=== PATIENT | female | born 1980 | race Caucasian/White ===

== ENCOUNTER → 2016-07-19 | Outpatient (CLI) | payer OTHER ==
[~2016-07-19] MED LIST: LEVO125T4 PO; PRENTAB26 PO
[2016-07-19 17:19] LABS: THYROID STIMULATING HORMONE 1.8 uIu/ml (0.300-4.500)
== END | disposition home or self-care (01) ==
LOC: C.LAB1850 15:46
PROVIDERS: ATTEND Internal Medicine Endocrinology, Diabetes & Metabolism
DX: E03.9 Hypothyroidism, unspecified (principal)

== ENCOUNTER → 2016-11-16 | Outpatient (CLI) | payer OTHER ==
[~2016-11-16] MED LIST changes: -LEVO125T4 PO; +LEVO125T5 PO
[2016-11-16 16:22] LABS: THYROID STIMULATING HORMONE 1.6 uIu/ml (0.300-4.500)
== END ==
LOC: C.LAB1850 14:42
PROVIDERS: ATTEND Internal Medicine Endocrinology, Diabetes & Metabolism
DX: E03.9 Hypothyroidism, unspecified (principal)

== ENCOUNTER → 2017-02-04 | Outpatient (CLI) | payer OTHER ==
[~2017-02-04] MED LIST changes: +LEVO125T4 PO; -LEVO125T5 PO
[2017-02-04 17:24] LABS: THYROID STIMULATING HORMONE 2.05 uIu/ml (0.300-4.500)
== END | disposition home or self-care (01) ==
LOC: C.LAB1850 15:32
PROVIDERS: ATTEND Internal Medicine Endocrinology, Diabetes & Metabolism
DX: E03.9 Hypothyroidism, unspecified (principal)

== ENCOUNTER 2017-03-10 03:38 | Emergency (ER) | payer OTHER ==
[~2017-03-10] VITALS: Ht 162.6 cm; Wt 60.3 kg
[2017-03-10 03:44] VITALS: TEMP 36.7; Ht 162.6 cm; Wt 60.3 kg
[2017-03-10] MEDS ORDERED: PROPARACAINE HCL 0.5% OP SOLN 15 ML BTL OP STA (03:53)
[2017-03-10] MEDS ORDERED: CIPROFLOXACIN HCL 0.3% OP SOLN 2.5 ML BTL OP STA (04:17)
--- NOTE | 2017-03-10 04:17 | EMERGENCY ROOM VISIT NOTE ---
ED Visit Note First contact with patient: 03:53 CHIEF COMPLAINT: Eye pain HISTORY OF PRESENT ILLNESS: This 36 patient presents to the emergency department with family complaining of pain in the left eye after her daughter accidently poked her in the eye . There has been a constant moderate pain and irritation, redness and tearing in the eye. There is a mild blurring of vision at times and light bothers the eye. The vision has been decreased over all. The patient does not wear contacts. The patient rates the pain as irritating and 7/10. The patient has not had previous injuries to this eye. Tetanus shot is up to date. REVIEW OF SYSTEMS: A 6 system review of systems was completed with positives and pertinent negatives listed in the HPI. ALLERGIES: Penicillin MEDICATIONS:none PMH: Medical Problems: (1) Bronchitis Status: Resolved (2) Ovarian cyst Status: Resolved (3) Pneumonia Status: Resolved (4) Status: Chronic SOCIAL HISTORY: no drug use PHYSICAL EXAM: Vital Signs: Reviewed Nurse's notes, vital signs stable. Visual acuity reviewed from nursing. GENERAL: This is a pleasant female, in no acute distress, but who is uncomfortable from the eye problem. Well-developed well- nourished. EYES: The pupils are equal round and reactive to light and accommodation. EOMs are full and without tenderness. There is discharge of clear tears from the left eye which is injected. There is no foreign body visible under the eyelid even after lid eversion. Funduscopic exam reveals no hemorrhages, papilledema, or other abnormalities. No foreign body was seen embedded in the cornea under slit lamp exam. The cornea was clear and no hyphema was seen. Fluorescein uptake was observed with ultraviolet light significant for a corneal abrasion at 5:00 that is 4 mm in diameter. Negative Radha sign. EMERGENCY DEPARTMENT COURSE: I examined the patient. Alcaine 2 drops were placed in the patient's left eye. A slit lamp exam was performed as above. Ciloxan two drops was placed in the patient's left eye. Patient was informed she had an extensive corneal abrasion. She had a negative Radha sign. She was strongly encouraged to see ophthalmology tomorrow morning for further evaluation and workup for her injury. She is advised to return to the ER me for severe pain, visual problems, worsening signs or symptoms or as needed. The patient was discharged home in good condition. DIAGNOSIS: Corneal abrasion of the left eye DISCHARGE INSTRUCTIONS AND TREATMENT: Use Ciloxin two drops in left eye every two hours while awake for two days; then two drops every four hours while awake for [address], drink alcohol, operate machinery, or perform dangerous activities today. You were given medications in the ER that can affect your ability to safely function or operate a vehicle. Oxycodone (OxyIR) 5mg: Take 1-2 pills every four hours for breakthrough pain. Avoid alcohol, operating machinery or dangerous equipment, working on ladders or roofs, DRIVING, or situations where being under the influence may be dangerous. It is recommended to use an goau-haz-kiwyifj stool softener such as Colace, 100mg twice daily while taking this medication to avoid constipation. Ibuprofen(Motrin, Advil) may be used for fever or pain. Use 600mg every six hours as needed. Take with food. Avoid using more than 2400mg in a 24 hour period. Do not use 2400mg per day for more than three consecutive days without physician direction. Prolonged inappropriate use can lead to stomach upset or ulcers. This medication can be taken if you need to drive, work, or perform activities which may be dangerous when taking narcotic pain medication. (AND/OR) Acetaminophen(Tylenol) may be used for fever or pain. Use 1000mg every six hours as needed. Avoid using more than 3000mg in a 24 hour period. This medication can be taken if you need to drive, work, or perform activities which may be dangerous when taking narcotic pain medication. Return to the ED or see your eye doctor in 24-48 hours for a recheck. Return to the ED for increasing pain or changes in vision. Problem List Medical Problems: (1) Bronchitis Status: Resolved (2) Ovarian cyst Status: Resolved (3) Pneumonia Status: Resolved (4) Status: Chronic Current/Historical Medications Scheduled Levothyroxine Sodium (Levothyroxine Sodium), 1 TAB PO DAILY Multivit/Min/Iron/Fol Ac/Pren ( Vitamin), 1 TAB PO DAILY Allergies Coded Allergies: Penicillins (Unverified Allergy, Unknown, UNSURE OF REACTION, 09/28/15) Vital Signs Date Time Temp Pulse Resp B/P (MAP) Pulse Ox O2 Delivery O2 Flow Rate FiO2 03/10/17 03:44 36.7 79 18 124/85 96 Room Air Departure Information Referrals Raleigh Santos M.D.(DYANA) (PCP) Patient Instructions [facility]
[2017-03-10] MEDS ORDERED: OXYCODONE IR HOME PACK PO ONE (04:30)
[2017-03-10 04:34] VITALS: BP 119/74; PULSE 86; O2SAT 96
== END 2017-03-10 04:35 | disposition home or self-care (01) ==
LOC: C.EDB 03:39
DX: S05.02XA Injury of conjunctiva and corneal abrasion without foreign body, left eye, initial encounter (principal); W50.0XXA Accidental hit or strike by another person, initial encounter

== ENCOUNTER → 2017-08-26 | Outpatient (CLI) | payer OTHER ==
[~2017-08-26] MED LIST changes: -LEVO125T4 PO; +LEVO125T5 PO
== END | disposition home or self-care (01) ==
LOC: C.LAB1850 12:27
PROVIDERS: ATTEND Internal Medicine Endocrinology, Diabetes & Metabolism
DX: E03.9 Hypothyroidism, unspecified (principal)

== ENCOUNTER 2020-04-16 16:08 | Observation (INO) ==
[2020-04-16] MEDS ORDERED: SODIUM CHLORIDE 0.9% 1000ML 1,000 ML IV ONE (16:15)
--- NOTE | 2020-04-16 16:28 | Emergency Department Note ---
Impression & Plan Abdominal pain, epigastric, Gallbladder anomaly, Acute hypokalemia ED Provider Note NAME: TREVOR ROBISON AGE: 39 SEX: F : 1980 ARRIVES VIA: Walk-In INFORMANT: Patient ED PROVIDER(S): Aydin Syed DO CHIEF COMPLAINT: Epigastric abdominal pain HPI: Patient is a 39-year-old female who presents ER for epigastric abdominal pain and fullness. Symptoms started this past Saturday. She notes over the past 48 hours feels as though there is a ball in there which has increased in size. Is worse after eating and drinking. She notes it is worse when she takes a deep breath. She denies any chest pain. The pain hurts when she takes deep breath in her epigastric region. No vomiting. Denies any dysuria, urgency or frequency. Last menstrual period was around the ninth and appropriate timing. Denies any cough or runny nose. No loss of taste or smell. No other exacerbating or remitting factors other than its worse with eating and drinking and twisting turning bending. She was previously on a PPI which she had stopped for some time and her PCP started this back up. PCP has her scheduled for endoscopy next week. ROS: See above HPI for pertinent positives & negatives. A total of 10 systems reviewed and were otherwise negative. PAST MEDICAL HISTORY:See Below PAST SURGICAL HISTORY:See Below FAMILY HISTORY:See Below SOCIAL HISTORY:See Below HOME MEDICATIONS:See Below ALLERGIES:See Below VITALS:See Below PHYSICAL EXAMINATION: GENERAL: Sitting up in bed, alert, well appearing, well nourished, no distress, non-toxic EYE EXAM: normal conjunctiva. OROPHARYNX: no exudate, no erythema, lips, buccal mucosa, and tongue normal and mucous membranes are moist NECK: supple, no nuchal rigidity, no adenopathy, non-tender LUNGS: Clear to auscultation. Normal chest wall mechanics HEART: no murmurs, S1 normal and S2 normal ABDOMEN: tender in the epigastric/RUQ region, non-tender, normo-active bowel sounds, no masses, no rebound or guarding. BACK: Back is symmetrical on inspection and there is no deformity, no midline tenderness, no CVA tenderness. SKIN: no rashes and no bruising UPPER EXTREMITIES: upper extremities are grossly normal. LOWER EXTREMITIES: No pitting edema. NEURO EXAM: Normal sensorium, cranial nerves II-XII grossly intact, normal speech, no gross weakness of arms, no gross weakness of legs. MEDICAL DECISION MAKING: Patient is a 39-year-old female who presents ER for epigastric abdominal pain. On exam she does have reproducible tenderness. IV was established blood work was obtained. Labs show no significant leukocytosis or anemia. D-dimer was negative with a pleuritic pain. BMP was remarkable for mild hypokalemia. LFTs bilirubin lipase was unremarkable. TSH slightly low 0.16. UA was negative. was negative. Ultrasound was unremarkable. CT abdomen pelvis shows stranding around the gallbladder. Discussed with Dr. Noel Flower who favors that this would be extremely unlikely to be a calculus cholecystitis with her age. Was agreeable with observation to the hospitalist service and possible HIDA scan and he will evaluate her. She did declined pain medications while she was in the ER. She was given IV fluids and a GI cocktail. Triage Nursing notes reviewed. Prior medical records reviewed Vital Signs: reviewed and remarkable for no significant abnormalities Differential diagnosis: Differential diagnoses includes but is not limited to gastritis, peptic ulcer disease, GERD, gallbladder disease, pancreatitis, small bowel obstruction, acute coronary syndrome, pericarditis, ischemic bowel, irritable bowel disease, irritable bowel syndrome, appendicitis, diverticulitis, malignancy, hernia, urinary tract infection, torsion, perforation, trauma, infectious. ER treatment provided: See below Diagnostics interpreted by me: ECG: Sinus rhythm rate 88 Normal axis No PVCs T WI in the septal leads QTC 440 Cardiac Monitoring: An order was placed for continuous cardiac monitoring. The monitor shows a rate of 83 with sinus rhythm. Laboratory studies: As stated above and show below. Imaging studies: Ultrasound of the gallbladder was unremarkable Portable AP upright 1 view of the chest was unremarkable CT abdomen pelvis shows inflammation around the gallbladder Consultation(s): Discussed with Dr. Noel Flower from general surgery as stated above in MDM Discussed with Dr. 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 ); Hx Alcohol Use: No Hx Substance Use: No Preferred Language: [place] All Round Logger Required: No Beliefs That Will Affect Care: None marital status: marital status details: Mariusz Robison (42) [phone] Current Living Situation: Spouse and Family Current Living Situation Comment: LIVES WITH SPOUSE AND DAUGHTER current occupational status: employed 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 Assistive Devices: Glasses Allergies Allergies Allergy/AdvReac Type Severity Reaction Status Date / Time Penicillins Allergy Unknown UNSURE OF Verified 02/26/20 09:35 REACTION Home Meds Home Medications Medication Instructions Recorded Confirmed calcium carbonate [Tums] 0 mg PO BID PRN 04/16/20 04/16/20 montelukast 10 mg PO DAILY PRN 04/16/20 04/16/20 [id number] 124 1 tab PO TID 04/16/20 04/16/20 [Airborne (ascorbic acid)] Previous Rx's Medication Instructions Recorded levothyroxine 125 mcg tablet 125 mcg PO DAILY #30 tab 01/25/20 Results & Data (ED) Vital Signs Vital Signs - 24 hr 04/16/20 16:11 04/16/20 16:22 04/16/20 19:23 Temperature 36.8 C Temperature Source Oral Pulse Rate 100 H Pulse Rate [Apical] 89 Respiratory Rate 20 18 Respiratory Effort / Characteristics Non-Labored Respiratory Depth Normal Blood Pressure 136/85 Blood Pressure [Right Arm] 119/88 Blood Pressure Mean 102 Blood Pressure Mean [Right Arm] 98 Pulse Oximetry 96 97 98 Oxygen Delivery Method Room Air Room Air Room Air Sepsis Recent Fever Within 48 Hours No Sepsis New/Unexplained Change in Mental Status N/A Sepsis Action Taken by Nursing No Action Required Laboratory Data Result diagrams: 04/16/20 16:45 04/16/20 16:45 Lab Results 04/16/20 04/16/20 04/16/20 Range/Units 16:45 16:45 16:45 WBC 9.54 (4.8-10.8) K/uL RBC 4.55 (4.2-5.4) M/uL Hgb 13.7 (12.0-16.0) g/dL Hct 40.2 (37-47) % MCV 88.4 (80-100) fL MCH 30.1 (25-34) pg MCHC 34.1 (32-36) g/dL RDW Std Deviation 38.3 (36.4-46.3) fL RDW Coeff of Juliana 11.9 (11.5-14.5) % Plt Count 180 (130-400) K/uL MPV 11.4 H (7.4-10.4) fL Immature Gran % (Auto) 0.2 % Neut % (Auto) 70.0 % Lymph % (Auto) 19.2 % [place] % (Auto) 9.5 % Eos % (Auto) 1.0 % Baso % (Auto) 0.1 % Neut # (Auto) 6.67 H (1.4-6.5) K/uL Lymph # (Auto) 1.83 (1.2-3.4) K/uL [place] # (Auto) 0.91 H (0.11-0.59) K/uL Eos # (Auto) 0.10 (0-0.5) K/uL Baso # (Auto) 0.01 (0-0.2) K/uL Immature Gran # (Auto) 0.02 (0.00-0.02) K/uL D-Dimer 280 (0-500) ug/L FEU Sodium 140 (136-145) mmol/L Potassium 3.4 L (3.5-5.1) mmol/L Chloride 106 (98-107) mmol/L Carbon Dioxide 31 (21-32) mmol/L Anion Gap 3.0 (3-11) BUN 11 (7-18) mg/dl Creatinine 0.87 (0.6-1.2) mg/dl Est Cr Clr Drug Dosing Not Reportable Est GFR ( Amer) 98.6 Est GFR (Non-Af Amer) 85.1 BUN/Creatinine Ratio 13.0 (10-20) Glucose 95 (70-99) mg/dl Calcium 8.7 (8.5-10.1) mg/dl Magnesium 2.0 (1.8-2.4) mg/dl Total Bilirubin 0.3 (0.2-1) mg/dl AST 50 H (15-37) U/L ALT 70 (12-78) U/L Alkaline Phosphatase 96 (45-117) U/L Total Protein 6.9 (6.4-8.2) gm/dl Albumin 3.7 (3.4-5.0) gm/dl Globulin 3.2 (2.5-4.0) gm/dl Albumin/Globulin Ratio 1.2 (0.9-2) Lipase 127 (73-393) U/L TSH 0.164 L (0.300-4.500) uIu/ml Urine Color Urine Appearance (Clear) Urine pH (4.5-7.5) Ur Specific [place] (1.000-1.030) Urine Protein (Negative) Urine Glucose (UA) (Negative) Urine Ketones (Negative) Urine Blood (Negative) Urine Nitrite (Negative) Urine Bilirubin (Negative) Urine Urobilinogen (Negative) Ur Leukocyte Esterase (Negative) Urine Test (Negative) 04/16/20 04/16/20 Range/Units 16:45 Unknown WBC (4.8-10.8) K/uL RBC (4.2-5.4) M/uL Hgb (12.0-16.0) g/dL Hct (37-47) % MCV (80-100) fL MCH (25-34) pg MCHC (32-36) g/dL RDW Std Deviation (36.4-46.3) fL RDW Coeff of Juliana (11.5-14.5) % Plt Count (130-400) K/uL MPV (7.4-10.4) fL Immature Gran % (Auto) % Neut % (Auto) % Lymph % (Auto) % [place] % (Auto) % Eos % (Auto) % Baso % (Auto) % Neut # (Auto) (1.4-6.5) K/uL Lymph # (Auto) (1.2-3.4) K/uL [place] # (Auto) (0.11-0.59) K/uL Eos # (Auto) (0-0.5) K/uL Baso # (Auto) (0-0.2) K/uL Immature Gran # (Auto) (0.00-0.02) K/uL D-Dimer (0-500) ug/L FEU Sodium (136-145) mmol/L Potassium (3.5-5.1) mmol/L Chloride (98-107) mmol/L Carbon Dioxide (21-32) mmol/L Anion Gap (3-11) BUN (7-18) mg/dl Creatinine (0.6-1.2) mg/dl Est Cr Clr Drug Dosing Est GFR ( Amer) Est GFR (Non-Af Amer) BUN/Creatinine Ratio (10-20) Glucose (70-99) mg/dl Calcium (8.5-10.1) mg/dl Magnesium (1.8-2.4) mg/dl Total Bilirubin (0.2-1) mg/dl AST (15-37) U/L ALT (12-78) U/L Alkaline Phosphatase (45-117) U/L Total Protein (6.4-8.2) gm/dl Albumin (3.4-5.0) gm/dl Globulin (2.5-4.0) gm/dl Albumin/Globulin Ratio (0.9-2) Lipase (73-393) U/L TSH (0.300-4.500) uIu/ml Urine Color Yellow Urine Appearance Clear (Clear) Urine pH 8.5 H (4.5-7.5) Ur Specific [place] 1.017 (1.000-1.030) Urine Protein Negative (Negative) Urine Glucose (UA) Negative (Negative) Urine Ketones Negative (Negative) Urine Blood Negative (Negative) Urine Nitrite Negative (Negative) Urine Bilirubin Negative (Negative) Urine Urobilinogen Negative (Negative) Ur Leukocyte Esterase Negative (Negative) Urine Test Negative (Negative) Administered Medications Discontinued Medications Sodium Chloride (Nss 1000ml) 1,000 mls @ 999 mls/hr IV .Q1H1M ONE Stop: 04/16/20 17:15 Last Infusion: 04/16/20 17:55 Dose: 0 mls/hr Documented by: [id number] Admin: 04/16/20 16:54 Dose: 999 mls/hr Documented by: [id number] Ioversol (Ioversol 100ml) 93 ml IV ONCE ONE Stop: 04/16/20 18:36 Last Admin: 04/16/20 18:36 Dose: 93 ml Documented by: [id number] Discharge Plan Visit Data Chief Complaint: Abdominal Pain Stated Complaint: abd pain ED Provider: Aydin Syed Discharge Problem: Abdominal pain, epigastric, Gallbladder anomaly, Acute hypokalemia Forms Stand Alone Forms: My [employer] Prescriptions Prescriptions: No Action levothyroxine 125 mcg tablet 125 mcg PO DAILY Qty: 30 RF: 5 calcium carbonate [Tums] 200 mg calcium (500 mg) Tablet,Chewable 0 mg PO BID PRN (Reason: gi-upset) RF: 0 montelukast 10 mg tablet 10 mg PO DAILY PRN (Reason: allergies) RF: 0 Airborne (ascorbic acid) 250-87.5 mg Tablet,Chewable 1 tab PO TID RF: 0
[2020-04-16 16:52] LABS: Basophils # (auto) 0.01 K/uL (0-0.2); Basophils % (auto) 0.1 %; Hematocrit (blood only) 40.2 % (37-47); Hemoglobin 13.7 g/dL (12.0-16.0); Immature Granulocytes # (auto) 0.02 K/uL (0.00-0.02); Immature Granulocytes % (auto) 0.2 %; Lymphocytes # (auto) 1.83 K/uL (1.2-3.4); Lymphocytes % (auto) 19.2 %; Mean Corpuscular Hemoglobin 30.1 pg (25-34); Mean Corpuscular Hgb Conc 34.1 g/dL (32-36); Mean Corpuscular Volume 88.4 fL (80-100); Mean Platelet Volume 11.4 fL (7.4-10.4); Monocytes # (auto) 0.91 K/uL (0.11-0.59); Monocytes % (auto) 9.5 %; Neutrophils # (auto) 6.67 K/uL (1.4-6.5); Platelet Count 180 K/uL (130-400); RDW Coefficient of Variation 11.9 % (11.5-14.5); RDW Standard Deviation 38.3 fL (36.4-46.3); Red Blood Count 4.55 M/uL (4.2-5.4); White Blood Count 9.54 K/uL (4.8-10.8)
[2020-04-16 16:55] LABS: Appearance Urine Clear (Clear); Bilirubin Urine Negative (Negative); Blood Urine Negative (Negative); Color Urine Yellow; Glucose Urine UA Negative (Negative); Ketones Urine Negative (Negative); Leukocyte Esterase Urine Negative (Negative); Nitrite Urine Negative (Negative); Protein Urine Negative (Negative); Specific Gravity Urine 1.017 (1.000-1.030); Urobilinogen Urine Negative (Negative); pH Urine 8.5 (4.5-7.5)
[2020-04-16 16:58] LABS: Pregnancy Test, Urine Negative (Negative)
[2020-04-16 17:14] LABS: Alanine Aminotransferase 70 U/L (12-78); Albumin Level 3.7 gm/dl (3.4-5.0); Aspartate Aminotransferase 50 U/L (15-37); Blood Urea Nitrogen 11 mg/dl (7-18); Calcium 8.7 mg/dl (8.5-10.1); Carbon Dioxide 31 mmol/L (21-32); Chloride 106 mmol/L (98-107); Est GFR (African American) 98.6; Est GFR (Non-African American) 85.1; Glucose 95 mg/dl (70-99); Lipase 127 U/L (73-393); Potassium 3.4 mmol/L (3.5-5.1); Sodium 140 mmol/L (136-145)
[2020-04-16 17:16] LABS: Albumin Globulin Ratio 1.2 (0.9-2); Alkaline Phosphatase 96 U/L (45-117); Bilirubin,Total 0.3 mg/dl (0.2-1); Globulin 3.2 gm/dl (2.5-4.0); Total Protein 6.9 gm/dl (6.4-8.2)
[2020-04-16 17:30] LABS: D Dimer 280 ug/L FEU (0-500)
--- NOTE | 2020-04-16 18:16 | Ultrasound Report ---
ABDOMINAL ULTRASOUND, RIGHT UPPER QUADRANT HISTORY: epigastric abd pain worse with eating. COMPARISON: None. FINDINGS: Pancreas: The pancreas demonstrates a normal echotexture. Liver: Unremarkable. Gallbladder: The gallbladder is contracted. No definite gallbladder wall thickening. No gallstones. CBD: 3 mm. Right kidney: No hydronephrosis. IMPRESSION: No significant abnormality identified within the right upper quadrant. ACT 112: Negative or not required by law. Electronically signed by: Skip Ford M.D. 04/16/2020 6:14 PM
[2020-04-16] MEDS ORDERED: IOVERSOL 100ml IV ONE (18:35)
--- NOTE | 2020-04-16 19:06 | CT Scan Report ---
ABDOMEN AND PELVIS CT WITH IV CONTRAST CT DOSE: 384.53 mGy.cm HISTORY: epigastric abd pain TECHNIQUE: Multiaxial CT images of the abdomen and pelvis were performed following the use of intrave nous contrast. A dose lowering technique was utilized adhering to the principles of ALARA. COMPARISON STUDY: Abdominal ultrasound 04/16/2020. FINDINGS: The lung bases are clear. No pneumoperitoneum. No pneumatosis. No fractures within the visu alized osseous structures. The liver, pancreas, spleen, adrenal glands, left kidney are unremarkable. No hydronephrosis. A 7 mm hypodense lesion within the right kidney is technically too small to luis cterize but statistically represents a cyst. The bladder is unremarkable. The uterus and bilateral ov arelis are within normal limits. There is trace pelvic free fluid. This is likely physiologic. No retr operitoneal lymphadenopathy. Mild inflammatory change adjacent to the gallbladder. No bowel wall thic kening or obstruction. The visualized appendix is unremarkable.. The gallbladder is contracted. This results in suboptimal evaluation. IMPRESSION: 1. Mild inflammatory change surrounding the gallbladder. The gallbladder is contracted. This results in suboptimal evaluation. A developing acute cholecystitis cannot be excluded. Surgical consultation recommended. In addition, a follow-up nuclear medicine HIDA scan can be performed for further evaluat ion if clinically warranted. 2. No bowel wall thickening or obstruction. 3. Trace pelvic free fluid. This is likely physiologic. ACT 112: Negative or not required by law. Electronically signed by: Skip Ford M.D. 04/16/2020 7:04 PM
--- NOTE | 2020-04-16 19:33 | XRay Report ---
XR chest 1V portable HISTORY: pleuritic epigastric abd pain COMPARISON: Chest 04/18/2010. FINDINGS: The lungs are clear. Cardiac silhouette is normal in size. No pleural effusions. No pneumot horax. IMPRESSION: No acute process. ACT 112: Negative or not required by law. Electronically signed by: Skip Ford M.D. 04/16/2020 7:31 PM
[2020-04-16] MEDS ORDERED: GI COCKTAIL ED USE PO ONE (19:38)
[2020-04-16] MEDS ORDERED: POTASSIUM CHLORIDE CRTAB 20 MEQ TABCR PO STA (20:04)
[2020-04-16 20:27] LABS: Thyroid Stimulating Hormone 0.164 uIu/ml (0.300-4.500)
--- NOTE | 2020-04-16 20:43 | History & Physical Report ---
Date of Service April 16, 2020 Assessment & Plan (1) Abdominal pain: Possible developing cholecystitis on CT read Patient not septic for now Hypothyroidism, TSH noted to be low OBS GMF Surgery consult Re: Possible cholecystitis (ER provider already in touch with Dr. Flower who recommends HIDA scan.) N.p.o. until HIDA scan results known. Recheck other TFTs, levothyroxine dose may need adjustment. DVT prophylaxis. SCDs RE possible procedure Full code Text document was generated using [employer] voice recognition software. It may contain grammatical or spelling errors. Kindly contact undersigned for clarification of any documentation item in question. History of Present Illness Chief Complaint: Abdominal pain Primary Care Provider: Raleigh Santos MD History obtained from patient and records. Medical history significant for hypothyroidism. 1 week history of achy epigastric discomfort and fullness somewhat worse after meals. Different from reflux attack. Some nausea. No actual emesis. Discomfort somewhat worse on taking a deep breath. Symptoms attributed by PCP to possible GERD. Patient told to continue PPI. Outpatient EGD contemplated. Patient noted worsening discomfort the last 2 days. Discomfort worse after a chicken burger lunch meal today. Medical History as above Surgical History : Hip surgery Family History : Hypothyroidism Personal/Social history : Non-smoker, no EtOH intake, [employer] employee Allergies Allergy/AdvReac Type Severity Reaction Status Date / Time Penicillins Allergy Unknown UNSURE OF Verified 02/26/20 09:35 REACTION Home Medications Medication Instructions Recorded Confirmed Type levothyroxine 125 mcg tablet 125 mcg PO DAILY #30 tab 01/25/20 04/16/20 Rx calcium carbonate [Tums] 0 mg PO BID PRN 04/16/20 04/16/20 History montelukast 10 mg PO DAILY PRN 04/16/20 04/16/20 History urlzcqrr-[id number]-herb 124 1 tab PO TID 04/16/20 04/16/20 History [Airborne (ascorbic acid)] Past Med/Surg History Medical History History of chicken pox Hypothyroidism Surgical History S/P hip arthroscopy 2012 S/P wisdom tooth extraction Family History Mother Thyroid disease Social History Smoking Status: Never smoker 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); Hx Alcohol Use: No Hx Substance Use: No Preferred Language: Slovak Communication Ability: Effective Tray Setter Required: No Beliefs That Will Affect Care: None marital status: marital status details: Mariusz Robison (42) [phone] Current Living Situation: Spouse and Family Current Living Situation Comment: LIVES WITH SPOUSE AND DAUGHTER current occupational status: employed 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[employer] Feels Safe at Home: Yes Safety Concerns: Feels Safe At This Time Assistive Devices: None Review of Systems Review of Systems: As per HPI, all 10 systems reviewed, all other ROS negative Physical Exam Physical Exam: GENERAL: Comfortable, pleasant, no respiratory distress SKIN: Normal color, warm HEENT: [place] palpebral conjunctivae, no ptosis, dry buccal mucosa NECK : Supple, no tenderness CHEST : CTA, no tenderness HEART : RRR, no obvious murmurs ABDOMEN: Some distention, right upper quadrant tenderness EXTREMITIES : No LE swelling/tenderness, no other conspicuous deformities noted NEUROLOGIC : Coherent, no facial asymmetry, no other gross focality Results & Data Results & Data ([facility]) Vital Signs (Past 12 Hours) Vital Signs Temp Pulse Pulse Resp BP BP Pulse Ox 04/16/20 19:23 89 18 119/88 98 04/16/20 16:22 97 04/16/20 16:11 36.8 C 100 H 20 136/85 96 Laboratory Results Laboratory Results WBC 9.54 K/uL (4.8-10.8) 04/16/20 16:45 RBC 4.55 M/uL (4.2-5.4) 04/16/20 16:45 Hgb 13.7 g/dL (12.0-16.0) 04/16/20 16:45 Hct 40.2 % (37-47) 04/16/20 16:45 MCV 88.4 fL (80-100) 04/16/20 16:45 MCH 30.1 pg (25-34) 04/16/20 16:45 MCHC 34.1 g/dL (32-36) 04/16/20 16:45 RDW Std Deviation 38.3 fL (36.4-46.3) 04/16/20 16:45 RDW Coeff of Juliana 11.9 % (11.5-14.5) 04/16/20 16:45 Plt Count 180 K/uL (130-400) 04/16/20 16:45 MPV 11.4 fL (7.4-10.4) H 04/16/20 16:45 Immature Gran % (Auto) 0.2 % 04/16/20 16:45 Neut % (Auto) 70.0 % 04/16/20 16:45 Lymph % (Auto) 19.2 % 04/16/20 16:45 [place] % (Auto) 9.5 % 04/16/20 16:45 Eos % (Auto) 1.0 % 04/16/20 16:45 Baso % (Auto) 0.1 % 04/16/20 16:45 Neut # (Auto) 6.67 K/uL (1.4-6.5) H 04/16/20 16:45 Lymph # (Auto) 1.83 K/uL (1.2-3.4) 04/16/20 16:45 [place] # (Auto) 0.91 K/uL (0.11-0.59) H 04/16/20 16:45 Eos # (Auto) 0.10 K/uL (0-0.5) 04/16/20 16:45 Baso # (Auto) 0.01 K/uL (0-0.2) 04/16/20 16:45 Immature Gran # (Auto) 0.02 K/uL (0.00-0.02) 04/16/20 16:45 D-Dimer 280 ug/L FEU (0-500) 04/16/20 16:45 Sodium 140 mmol/L (136-145) 04/16/20 16:45 Potassium 3.4 mmol/L (3.5-5.1) L 04/16/20 16:45 Chloride 106 mmol/L (98-107) 04/16/20 16:45 Carbon Dioxide 31 mmol/L (21-32) 04/16/20 16:45 Anion Gap 3.0 (3-11) 04/16/20 16:45 BUN 11 mg/dl (7-18) 04/16/20 16:45 Creatinine 0.87 mg/dl (0.6-1.2) 04/16/20 16:45 Est Cr Clr Drug Dosing Not Reportable 04/16/20 16:45 Est GFR ( Amer) 98.6 04/16/20 16:45 Est GFR (Non-Af Amer) 85.1 04/16/20 16:45 BUN/Creatinine Ratio 13.0 (10-20) 04/16/20 16:45 Glucose 95 mg/dl (70-99) 04/16/20 16:45 Calcium 8.7 mg/dl (8.5-10.1) 04/16/20 16:45 Magnesium 2.0 mg/dl (1.8-2.4) 04/16/20 16:45 Total Bilirubin 0.3 mg/dl (0.2-1) 04/16/20 16:45 AST 50 U/L (15-37) H 04/16/20 16:45 ALT 70 U/L (12-78) 04/16/20 16:45 Alkaline Phosphatase 96 U/L (45-117) 04/16/20 16:45 Total Protein 6.9 gm/dl (6.4-8.2) 04/16/20 16:45 Albumin 3.7 gm/dl (3.4-5.0) 04/16/20 16:45 Globulin 3.2 gm/dl (2.5-4.0) 04/16/20 16:45 Albumin/Globulin Ratio 1.2 (0.9-2) 04/16/20 16:45 Lipase 127 U/L (73-393) 04/16/20 16:45 TSH 0.164 uIu/ml (0.300-4.500) L 04/16/20 16:45 Urine Color Yellow 04/16/20 16:45 Urine Appearance Clear (Clear) 04/16/20 16:45 Urine pH 8.5 (4.5-7.5) H 04/16/20 16:45 Ur Specific [place] 1.017 (1.000-1.030) 04/16/20 16:45 Urine Protein Negative (Negative) 04/16/20 16:45 Urine Glucose (UA) Negative (Negative) 04/16/20 16:45 Urine Ketones Negative (Negative) 04/16/20 16:45 Urine Blood Negative (Negative) 04/16/20 16:45 Urine Nitrite Negative (Negative) 04/16/20 16:45 Urine Bilirubin Negative (Negative) 04/16/20 16:45 Urine Urobilinogen Negative (Negative) 04/16/20 16:45 Ur Leukocyte Esterase Negative (Negative) 04/16/20 16:45 Urine Test Negative (Negative) 04/16/[address] abdomen and pelvis: 1. Mild inflammatory change surrounding the gallbladder. The gallbladder is contracted. This results in suboptimal evaluation. A developing acute cholecystitis cannot be excluded. Surgical consultation recommended. In addition, a follow-up nuclear medicine HIDA scan can be performed for further evaluation if clinically warranted. 2. No bowel wall thickening or obstruction. 3. Trace pelvic free fluid. This is likely physiologic. Gallbladder ultrasound: No significant abnormality identified within the right upper quadrant. Chest x-ray : No acute process EKG as per my interpretation : Rate 90, NSR, normal axis, incomplete RBBB, no ischemia
[2020-04-16] MEDS ORDERED: traMADol HCL 50 MG TABLET PO PRN (21:53)
[2020-04-16] MEDS ORDERED: ACETAMINOPHEN 325 MG TAB PO PRN (21:53)
[2020-04-16] MEDS ORDERED: CALCIUM CARBONATE 500 MG CHEWABLE TAB PO PRN (21:53)
[2020-04-16] MEDS ORDERED: LORazepam 0.25 MG/0.5 ML VIAL IV PRN (21:53)
[2020-04-16] MEDS ORDERED: MoRPHine SULFATE 2 MG/ML CARP IV PRN (21:53)
[2020-04-16] MEDS ORDERED: PROMETHAZINE HCL 12.5 MG in SODIUM CHLORIDE 0.9% 50 ML IV PRN (21:53)
[2020-04-16] MEDS ORDERED: [UNRECOGNIZED DRUG - OTHER] PO SCH (21:53)
[2020-04-16] MEDS ORDERED: MONTELUKAST SODIUM 10 MG TABLET PO PRN (21:53)
[2020-04-16] MEDS: POTASSIUM CHLORIDE 40 MEQ in SODIUM CHLORIDE 0.9% 1000ML 1,000 ML IV SCH (22:25)
--- NOTE | 2020-04-17 05:04 | Surgery Consultation ---
Date of Consultation April 17, 2020 Assessment & Plan (1) Abdominal pain: -no convincing evidence of GB etiology at this point -admitting service has ordered a HIDA scan -pt. notes she is scheduled for EGD as outpt. this week: -if HIDA (-) recommend she have EGD as scheduled for further evaluation of her pain Supervising Physician Co-Signing Physician Notes I personally saw and evaluated the patient with Yared Flower PA-C and agree with the assessment and plan 39 yo female with epigastric abdominal pain -US and CT images and results reviewed -With absence of gallstones extremely unlikely there is an acute gallbladder process in this healthy 39 yo female -Primary team has ordered HIDA scan, will follow up results -Could consider an inpatient GI evaluation as well for consideration of EGD -She may have biliary dyskinesia which could be worked up with a HIDA with CCK as an outpatient if no other cause of her abdominal pain is found History of Present Illness Attending Physician: Segundo German MD History of Present Illness 39 year old female presented to te ED yesterday due to epigastric abdominal pain that has been persistent for about 1 week. The pain was somewhat worse about 1 hour after eating. No diarrhea, BRBPR, or melena. The pain is non-radiating, without palliative factors. No N/V. No fevers, shakes, chills. In the ED, CT scan showed some small amount of inflammation around GB. GB US was not convincing for cholecystitis and no stones noted. She was in no distress at the time of my exam. Allergies Allergy/AdvReac Type Severity Reaction Status Date / Time Penicillins Allergy Unknown UNSURE OF Verified 02/26/20 09:35 REACTION Home Medications Medication Instructions Recorded Confirmed Type levothyroxine 125 mcg tablet 125 mcg PO DAILY #30 tab 01/25/20 04/16/20 Rx calcium carbonate [Tums] 0 mg PO BID PRN 04/16/20 04/16/20 History montelukast 10 mg PO DAILY PRN 04/16/20 04/16/20 History swwwsvmx-bcs-pguuvkel-herb 124 1 tab PO TID 04/16/20 04/16/20 History [Airborne (ascorbic acid)] Patient History Medical History History of chicken pox Hypothyroidism Surgical History S/P hip arthroscopy 2013 S/P wisdom tooth extraction Family History Mother Thyroid disease Social History Smoking Status: Never smoker 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); Hx Alcohol Use: No Hx Substance Use: No Preferred Language: Arabic Communication Ability: Effective Tube Sizer And Cutter Operator Required: No Beliefs That Will Affect Care: None marital status: marital status details: Mariusz Robison (42) [phone] Current Living Situation: Spouse and Family Current Living Situation Comment: LIVES WITH SPOUSE AND DAUGHTER current occupational status: employed 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 Safety Concerns: Feels Safe At This Time Assistive Devices: None Review of Systems Constitutional: no fever and no chills Eyes: no diplopia Ear, Nose, Mouth, Throat: no ear pain Respiratory: no cough and no dyspnea Cardiovascular: no chest pain Gastrointestinal: + abdominal pain; no nausea, no vomiting and no diarrhea/loose stools Genitourinary: no dysuria Musculoskeletal: no back pain Integumentary: no rash Neurologic: no localized weakness Physical Exam Constitutional: well developed and well nourished; no acute distress Eyes: + anicteric sclerae ENMT: Ears: no hearing impairment Neck: trachea midline Respiratory: normal respiratory effort, lungs clear to auscultation Cardiovascular: Rate/Rhythm: regular rate and regular rhythm Gastrointestinal (Abdomen): Percussion/Palpation: + abdomen tender (epigastric) and abdomen soft no rebound tenderness Musculoskeletal: no calf pain Skin: no rashes, warm and dry Neurologic: moves all extremities Psychiatric: A+Ox3, euthymic affect Results & Data ([facility]) Vital Signs (Past 12 Hours) Vital Signs Temp Pulse Resp BP Pulse Ox 04/16/20 21:45 36.7 C 80 16 124/90 97 04/16/20 21:10 90 18 135/95 99 04/16/20 19:23 89 18 119/88 98 PG Care Time/CCT Total # of Minutes Spent Total Time Spent with Patient: Total time spent is greater than 50% in coordination of care (as documented) at patient's floor/unit and/or counseling patient: Coding Level of Care Code 58109 Inpt Consult Level 5 Diagnoses Abdominal pain R10.9
[2020-04-17 06:06] LABS: Basophils # (auto) 0.01 K/uL (0-0.2); Basophils % (auto) 0.1 %; Eosinophils # (auto) 0.06 K/uL (0-0.5); Eosinophils % (auto) 0.8 %; Hematocrit (blood only) 39.2 % (37-47); Hemoglobin 13.4 g/dL (12.0-16.0); Immature Granulocytes # (auto) 0.01 K/uL (0.00-0.02); Immature Granulocytes % (auto) 0.1 %; Lymphocytes # (auto) 1.67 K/uL (1.2-3.4); Lymphocytes % (auto) 21.9 %; Mean Corpuscular Hemoglobin 30.3 pg (25-34); Mean Corpuscular Hgb Conc 34.2 g/dL (32-36); Mean Corpuscular Volume 88.7 fL (80-100); Mean Platelet Volume 11.5 fL (7.4-10.4); Monocytes # (auto) 0.72 K/uL (0.11-0.59); Monocytes % (auto) 9.4 %; Neutrophils # (auto) 5.15 K/uL (1.4-6.5); Neutrophils % (auto) 67.7 %; Platelet Count 162 K/uL (130-400); RDW Coefficient of Variation 11.9 % (11.5-14.5); RDW Standard Deviation 38.5 fL (36.4-46.3); Red Blood Count 4.42 M/uL (4.2-5.4); White Blood Count 7.62 K/uL (4.8-10.8)
[2020-04-17] MEDS ORDERED: LEVOTHYROXINE SODIUM 125 MCG TABLET PO SCH (06:30)
[2020-04-17 06:46] LABS: Albumin Level 3.2 gm/dl (3.4-5.0); BUN Creatinine Ratio 14.2 (10-20); Bilirubin,Total 0.5 mg/dl (0.2-1); Calcium 8.2 mg/dl (8.5-10.1); Est GFR (African American) 131.5; Est GFR (Non-African American) 113.4; Globulin 3.2 gm/dl (2.5-4.0); T4 Free Thyroxine 1.34 ng/dl (0.8-1.6); Total Protein 6.4 gm/dl (6.4-8.2)
[2020-04-17] MEDS ORDERED: PANTOprazole 40 MG in SYRINGE 0 ML IV SCH (09:30)
--- NOTE | 2020-04-17 10:33 | Nuclear Medicine Report ---
NM hepatobiliary CLINICAL HISTORY: abd pain abnormal gallbladder on prior CT scan. COMPARISON STUDY: CT scan dated 04/16/2020., Ultrasound dated 04/16/2020 FINDINGS: The patient was injected with 5.1 mCi of technetium 99m Choletec Sequential anterior imaging was performed. Hepatic excretion appeared unremarkable. There was normal passage of activity into small bowel. The g allbladder was first visualized in the 5 minute image. IMPRESSION: 1. Normal study. No evidence of cystic duct obstruction. ACT 112: Negative or not required by law. Electronically signed by: Frantz Berman M.D. 04/17/2020 10:31 AM
[2020-04-17] MEDS: POTASSIUM CHLORIDE 40 MEQ in SODIUM CHLORIDE 0.9% 1000ML 1,000 ML IV SCH (11:43)
--- NOTE | 2020-04-17 15:12 | Hospitalist Progress Note ---
Date of Service April 17, 2020 Assessment & Plan (1) Abdominal pain: Epigastric pain likely secondary to gastritis, possible underlying peptic ulcer disease Risk factors: Elevated stress level at work, excessive coffee consumption CT abdomen pelvis: 1. Mild inflammatory change surrounding the gallbladder. The gallbladder is contracted. This results in suboptimal evaluation. A developing acute cholecystitis cannot be excluded. Surgical consultation recommended. In addition, a follow- up nuclear medicine HIDA scan can be performed for further evaluation if clinically warranted. 2. No bowel wall thickening or obstruction. 3. Trace pelvic free fluid. This is likely physiologic. HIDA scan: Normal study. No evidence of cystic duct obstruction. LFTs: Within normal limits Lipase: Normal Troponin: Negative EKG: No signs of acute ischemia or infarct --General surgery consulted No surgical intervention recommended --Discussed case with survey director Dr. Jensen Recommend to increase PPI to twice daily EGD as scheduled on 04/20/2020 Hypothyroidism -- Levothyroxine 112 mcg daily TSH 0.164 Free T4 1.3, total T3 0.8 Clinically euthyroid Follows with Dr. Mosher with endocrinology We will message Dr. Mosher regarding thyroid function tests DVT prophylaxis. SCDs Full code Disposition Discharge to home EGD on 04/20/2020 Follow-up with primary care physician in 1 week Admission and Anticipated Discharge Date Admission Date: April 16, 2020 Subjective Follow-up for epigastric discomfort Seen after HIDA scan around 11:30 AM Resting in bed, comfortable, not in distress States she feels better compared to yesterday Epigastric discomfort is now mild, bloated sensation Denies nausea or vomiting, fevers or chills, positive flatus, no BM yet Denies central or substernal chest pain, shortness of breath, dizziness, headache No other symptoms States that she is hungry, requesting diet to be advanced Evaluated around 3 PM Patient sitting up in bed, comfortable, not in distress States he tolerated a clear liquid diet well No nausea vomiting, some mild epigastric bloating No tearing pain, nonradiating States she feels improved overall, would like to be discharged today Review of Systems Review of Systems: All systems reviewed & are unremarkable except as noted in Subjective Physical Exam Physical Exam: General- oriented x 3, not in distress, speaks in sentences with no effort or accessory muscle use Eyes- anicteric Neck- no JVD Lungs- clear breath sounds bilaterally, no rales/wheezes Heart- normal rate, regular rhythm; no murmurs Abdomen- normal bowel sounds, nondistended, soft, mild epigastric tenderness Extremities- no pretibial edema, no calf tenderness Neuro- alert, oriented x 3; no gross focal neurologic deficits Skin- warm & dry Results & Data Results & Data ([facility]) Vital Signs (Past 12 Hours) Vital Signs Temp Pulse Resp BP Pulse Ox 04/17/20 07:17 37 C 80 18 100/64 95
[2020-04-17] MEDS ORDERED: Nursing to Pharmacy Communication SCH (15:15)
--- NOTE | 2020-04-17 15:30 | Discharge Summary ---
Date of Service April 17, 2020 Admission HPI Per Admitting Provider History obtained from patient and records. Medical history significant for hypothyroidism. 1 week history of achy epigastric discomfort and fullness somewhat worse after meals. Different from reflux attack. Some nausea. No actual emesis. Discomfort somewhat worse on taking a deep breath. Symptoms attributed by PCP to possible GERD. Patient told to continue PPI. Outpatient EGD contemplated. Patient noted worsening discomfort the last 2 days. Discomfort worse after a chicken burger lunch meal today. Medical History as above Surgical History : Hip surgery Family History : Hypothyroidism Personal/Social history : Non-smoker, no EtOH intake, [employer] employee Admission Exam Per Admitting Provider GENERAL: Comfortable, pleasant, no respiratory distress SKIN: Normal color, warm HEENT: [place] palpebral conjunctivae, no ptosis, dry buccal mucosa NECK : Supple, no tenderness CHEST : CTA, no tenderness HEART : RRR, no obvious murmurs ABDOMEN: Some distention, right upper quadrant tenderness EXTREMITIES : No LE swelling/tenderness, no other conspicuous deformities noted NEUROLOGIC : Coherent, no facial asymmetry, no other gross focality Principal Diagnosis Epigastric pain, likely secondary to underlying gastritis or peptic ulcer d isease Discharge Exam General- oriented x 3, not in distress, speaks in sentences with no effort or accessory muscle use Eyes- anicteric Neck- no JVD Lungs- clear breath sounds bilaterally, no rales/wheezes Heart- normal rate, regular rhythm; no murmurs Abdomen- normal bowel sounds, nondistended, soft, mild epigastric tenderness Extremities- no pretibial edema, no calf tenderness Neuro- alert, oriented x 3; no gross focal neurologic deficits Skin- warm & dry Discharge Data Allergies Allergy/AdvReac Type Severity Reaction Status Date / Time Penicillins Allergy Unknown UNSURE OF Verified 02/26/20 09:35 REACTION Consultations 04/16/20 19:32 ED Decision to Admit Stat 04/16/20 21:53 Consult General Surgery Routine Ordered Studies 04/16/20 16:25 US gallbladder Stat 04/16/20 18:17 CT abd pelvis IV con only Stat Hospital Course (1) Abdominal pain: EPIGASTRIC PAIN LIKELY SECONDARY TO GASTRITIS, POSSIBLE UNDERLYING PEPTIC ULCER DISEASE Risk factors: Elevated stress level at work, excessive coffee consumption CT abdomen pelvis: 1. Mild inflammatory change surrounding the gallbladder. The gallbladder is contracted. This results in suboptimal evaluation. A developing acute cholecystitis cannot be excluded. Surgical consultation recommended. In addition, a follow- up nuclear medicine HIDA scan can be performed for further evaluation if clinically warranted. 2. No bowel wall thickening or obstruction. 3. Trace pelvic free fluid. This is likely physiologic. HIDA scan: Normal study. No evidence of cystic duct obstruction. LFTs: Within normal limits Lipase: Normal Troponin: Negative EKG: No signs of acute ischemia or infarct --General surgery consulted No surgical intervention recommended --Discussed case with cath lab tech Dr. Jensen Recommend to increase PPI to twice daily EGD as scheduled on 04/20/2020 Advised to return to the ER immediately if with worsening of symptoms HYPOTHYROIDISM -- Levothyroxine 112 mcg daily TSH 0.164 Free T4 1.3, total T3 0.8 Clinically euthyroid Follows with Dr. Mosher with endocrinology We will message Dr. Mosher regarding thyroid function tests DVT prophylaxis. SCDs Full code Disposition Discharge to home EGD on 04/20/2020 Follow-up with primary care physician in 1 week Plan of care discussed with patient in detail and at length All questions were answered She is understanding, agreeable, comfortable with the plan of care Total Time Total Time Spent Total Time Spent (In Minutes): 50 minutes Discharge Plan Discharge Items Patient Disposition: Home - Self-Care Reason For Visit: abd pain Discharge Diagnosis: Abdominal pain, likely secondary to underlying gastritis versus peptic ulcer disease Activity: As commented below Activity Comment: Resume gradually as tolerated, no heavy exertion Lifting: Wait until after follow-up appointment Exercise/Sports: Wait until after follow-up appointment Driving/Machine Use: No driving if you are experiencing abdominal pain Non-emergency contact: Primary Care Provider Call non-emergency contact if: you have any medication questions, your symptoms worsen, your pain is not controlled, your pain is worsening, your pain is unusual for you, your pain is concerning for you and you have a fever Follow-up/Referrals: Raleigh Santos MD [Primary Care Provider] - Diet: Low Fiber and Low Fat Addtl Attending Provider Instructions: Soft bland diet, avoid greasy food, spicy foods, carbonated or caffeinated beverages. Your new medication is Protonix-for gastric acid suppression, treatment of gastritis or peptic ulcer disease. Take Protonix at least 30 minutes before your breakfast and dinner. Upper GI endoscopy is scheduled for you on 04/20/2020 at the [facility]. Please make it to this appointment. Follow-up with primary care physician in 1 week. [facility] will be calling for the appointment schedule soon. Primary care physician or return to the ER immediately if with worsening of s ymptoms. Pending Studies at Discharge: No Stand-Alone Forms: My [facility] [employer], Smoking Cessation Medications and DC Order Prescriptions: New pantoprazole [Protonix] 20 mg tablet,delayed release (DR/EC) 20 mg PO BID Qty: 60 RF: 0 Continued levothyroxine 125 mcg tablet 125 mcg PO DAILY Qty: 30 RF: 5 calcium carbonate [Tums] 200 mg calcium (500 mg) Tablet,Chewable 0 mg PO BID PRN (Reason: gi-upset) RF: 0 montelukast 10 mg tablet 10 mg PO DAILY PRN (Reason: allergies) RF: 0 Airborne (ascorbic acid) 250-87.5 mg Tablet,Chewable 1 tab PO TID RF: 0 Discharge Orders: Discharge Order (Routine); Ordered 04/17/20 Ordered By: Segundo German Admission Data Admit Date/Time: 04/16/20 20:44 Attending Provider: Segundo German Admit Provider: Nicko Membreno Primary Care Provider: Raleigh Santos Other Providers: Nicko Membreno ; Noel Flower
--- NOTE | 2020-04-17 21:37 | Electrocardiogram Report ---
Test Reason : Blood Pressure : / mmHG Vent. Rate : 088 BPM Atrial Rate : 088 BPM P-R Int : 132 ms QRS Dur : 086 ms QT Int : 364 ms P-R-T Axes : 066 062 039 degrees QTc Int : 440 ms Normal sinus rhythm with sinus arrhythmia Possible Left atrial enlargement Borderline ECG When compared with ECG of 24-MAY-2015 13:15, No significant change was found Confirmed by Dave Rios ([id number]) on 04/17/2020 9:37:31 PM Referred By: REFERRED SELF Confirmed By:Dave Rios
== END 2020-04-17 16:35 | disposition home or self-care (01) ==
LOC: 2W 16:08 → ED 16:08 → 2W 21:22
DX: Z79.890 Hormone replacement therapy; E03.9 Hypothyroidism, unspecified; R10.13 Epigastric pain; Z79.899 Other long term (current) drug therapy; Z88.0 Allergy status to penicillin

== ENCOUNTER 2021-12-02 06:52 | Inpatient (IN) ==
[2021-12-02] MEDS ORDERED: KETOROLAC TROMETHAMINE 15 MG/ML VIAL IV STA (07:18)
[2021-12-02] MEDS ORDERED: ONDANSETRON INJ 2 MG/ML 2 ML VIAL IV STA (07:18)
[2021-12-02] MEDS ORDERED: FAMOTIDINE 20MG IV PUSH 20 MG/5 ML SYR IV STA (07:18)
[2021-12-02] MEDS ORDERED: SODIUM CHLORIDE 0.9% 1000ML 1,000 ML IV SCH ×2 (07:19→07:30)
--- NOTE | 2021-12-02 07:22 | Emergency Department Note ---
History of Present Illness General Chief complaint: Abdominal Pain Stated complaint: ABD PAIN AND BACK PAIN Time Seen by Provider: 12/02/21 07:03 History of Present Illness Maximum Pain Intensity: 10 Patient is a 41-year-old female with past medical history significant for hypothyroidism who presents emergency department for evaluation of abdominal pain times almost 12 hours. She notes the pain started around 2300 last night. She noted pain in a band in the upper abdomen, just under her ribs, and a sense of bloating in the epigastric region. She took a hot shower and ate some Tums, and the pain went away. She was able to sleep fine, but the discomfort returned again this morning and is worse. She again notes a bandlike pain across the upper abdomen the worst being in the epigastric region and is now wrapping around to her back bilaterally. She tried a shower and Tums but it did not help. She has been putting a heating pad on her abdomen. She currently rates her pain a 10/10. She is nauseous but has not vomited. She denies any belching, no indigestion or reflux. No diarrhea. Normal bowel movement yesterday. Last menstrual period started 3 days ago. She is on an oral contraceptive. She had a burrito for breakfast, a salad, hotdog and baked beans yesterday evening, had some popcorn before she went to bed. She does report an episode of pain similar to this a couple of years ago. She was actually watched in the hospital for her symptoms, they thought it could be related to her gallbladder but a HIDA scan was normal. She had an EGD and was told to " lay off of alcohol and NSAIDs." She took famotidine for a while, but stopped this about a year ago. does note that she uses Tums quite frequently, she states when she is not careful with her diet. She denies any chest pain. No shortness of breath. Home Medications Medication Instructions Recorded Confirmed Type levothyroxine 125 mcg tablet 125 mcg PO DAILY 02/09/21 04/05/21 History thyroid (pork) 90 mg tablet 90 mg PO DAILY #90 tab 04/05/21 10/04/21 Rx (Golden Thyroid) norethindrone 1.5 mg-ethinyl 1 tab PO DAILY #28 tab 05/18/21 10/04/21 Rx estradiol 30 mcg(21)/iron 75 mg(7) tablet (June FE 1.5 (28)) Allergies Allergy/AdvReac Type Severity Reaction Status Date / Time Penicillins Allergy Unknown UNSURE OF Verified 10/04/21 11:21 REACTION Past Med/Surg History Medical History Gallbladder anomaly Jsesee's thyroiditis History of chicken pox Hypothyroidism Ovarian cyst Surgical History S/P dilatation and curettage S/P hip arthroscopy 2012 S/P wisdom tooth extraction Family History Mother Thyroid disease Denies family history of Ovarian cancer Breast cancer Colorectal cancer Social History Smoking Status: Never smoker 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); Hx Alcohol Use: No Hx Substance Use: No Preferred Language: Armenian Communication Ability: Effective Visual Impairment: No Limitations Director Of Entertainment Required: No Beliefs That Will Affect Care: None marital status: marital status details: Mariusz Enriqueta (43) [phone] Current Living Situation: Spouse and Family Current Living Situation Comment: lives with spouse, daughter, dog, cats-spouse changing litter current occupational status: employed 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 Assistive Devices: None Review of Systems A total of 10 systems reviewed and were otherwise negative Physical Exam Vital Signs Vital Signs - 24 hr 12/02/21 06:53 12/02/21 08:19 12/02/21 09:22 Temperature 36.5 C Temperature Source Temporal Artery Scan Pulse Rate 96 H Pulse Rate [Radial] 76 81 Respiratory Rate 18 20 24 Respiratory Effort / Characteristics Non-Labored Normal for Patient Non-Labored Respiratory Depth Normal Normal Respiratory Pattern Regular Regular Blood Pressure 143/75 H Blood Pressure [Left Arm] 130/85 139/96 Blood Pressure Mean 97 Blood Pressure Mean [Left Arm] 100 110 Blood Pressure Position [Left Arm] Sitting Sitting Pulse Oximetry 96 97 98 Oxygen Delivery Method Room Air Room Air Room Air Sepsis Recent Fever Within 48 Hours No Sepsis New/Unexplained Change in Mental Status No Sepsis Action Taken by Nursing No Action Required CONSTITUTIONAL: Patient is an uncomfortable appearing 41-year-old female who is awake and alert and laying on a gurney. is at the bedside. EYES: Pupils equal, round, reactive to light and accommodation. EOMs intact without nystagmus. Sclera are anicteric. ENT: Tympanic membranes intact, with normal landmarks. External canals are clear. Oral and nasopharynx are clear. Mucous membranes are moist, no lesions, tongue and gums appear normal. CARDIOVASCULAR: Regular rate and rhythm,. Peripheral pulses easy to palpable. RESPIRATORY: Breath sounds equal and clear to auscultation GI: Bowel sounds are present. Abdomen is soft, mildly distended, tender to percussion across the upper abdomen, with primary pain in the epigastric and the right upper quadrant region. Mild guarding. No organomegaly. MUSCULOSKELETAL: Full range of motion of extremities x 4 with good strength. No cyanosis, edema, joint tenderness or swelling. No deformity. INTEGUMENTARY: No lesions or rash, normal skin turgor. NEUROLOGICAL: Alert, oriented, and cooperative. Cranial nerves, sensation and strength grossly intact. Pupils round, equal, and react to light, EOMs are full. LYMPH: No lymphadenopathy. Course Course The patient was seen and assessed as above. Old records are reviewed. She presents the emergency department for evaluation of upper abdominal discomfort. IV lock was initiated and laboratory studies were collected. She was hydrated with normal saline solution. She was medicated with Toradol, Zofran and Pepcid. Gallbladder ultrasound and acute abdominal series were obtained. CBC with di fferential, CMP, lipase, TSH, urinalysis and urine test were performed. Laboratory studies note a normal white count at 6300. No anemia. Electrolytes and renal functions are normal. Her bilirubin and transaminases are not elevated, but lipase is elevated at 2286. TSH is indicative of a euthyroid state. Urine microscopy notes blood, likely contamination from menses, otherwise without significant signs of infection, test is negative. Acute abdominal series is unremarkable. Gallbladder ultrasound notes the gallbladder to be distended and gallbladder wall thickened at 7 mm. There is pericholecystic fluid present, with no evidence for cholelithiasis. Findings are concerning for acalculus cholecystitis. All laboratory and diagnostic imaging findings were reviewed with the patient and her spouse. She is aware that she will need to come into the hospital for further care and management. She initially was feeling better, rated her discomfort a 4/10, however on later reassessment reported that her pain was increasing, she was given morphine 4 mg IV and ordered morphine 4 mg IV every 24 as needed. Consultation was placed with Dr. Brown with general surgery. He is happy to consult on the patient but does not think that she is appropriate for immediate surgical intervention due to the pancreatitis, and recommended MRCP which was ordered. She will need medical admission and GI evaluation. [facility] Dr[facility], please refer to admitting orders for further information. A COVID test was obtained for ad mitting purposes and was negative. MRCP noted findings consistent with acalculus cholecystitis, with no ductal abnormalities, and a small amount of free fluid surrounding the liver. Administered Medications Sodium Chloride (Nss 1000ml) 1,000 mls @ 250 mls/hr IV .Q4H [facility] Stop: 01/01/22 07:29 Last Admin: 12/02/21 08:40 Dose: 250 mls/hr Documented by: [id number] Morphine Sulfate (Morphine Sulfate 4 Mg/Ml 1 Ml Carp\\Vial) 4 mg IV Q1H PRN PRN Reason: Pain Stop: 12/16/21 09:03 Last Admin: 12/02/21 10:31 Dose: 4 mg Documented by: [id number] Discontinued Medications Diphenhydramine HCl (Diphenhydramine 50 Mg/Ml Vial) Confirm Administered Dose 50 mg .ROUTE .STK-MED ONE Stop: 12/02/21 10:44 Last Admin: 12/02/21 10:51 Dose: Not Given Documented by: [id number] Diphenhydramine HCl (Diphenhydramine Capsule 25 Mg Cap) Confirm Administered Dose 25 mg .ROUTE .STK-MED ONE Stop: 12/02/21 10:52 Last Admin: 12/02/21 10:52 Dose: 25 mg Documented by: [id number] Sodium Chloride (Nss 1000ml) 1,000 mls @ 999 mls/hr IV .Q1H1M [facility] Stop: 12/02/21 08:19 Last Infusion: 12/02/21 08:39 Dose: 0 mls/hr Documented by: [id number] Admin: 12/02/21 07:31 Dose: 999 mls/hr Documented by: [id number] Famotidine (Pepcid 20mg Iv Push) 20 mg in 5 mls @ 2.5 mls/min IV NOW STA Stop: 12/02/21 07:19 Last Admin: 12/02/21 07:33 Dose: 2.5 mls/min Documented by: [id number] Ketorolac Tromethamine (Ketorolac Tromethamine 15 Mg/Ml Vial) 15 mg IV NOW STA Stop: 12/02/21 07:19 Last Admin: 12/02/21 07:32 Dose: 15 mg Documented by: [id number] Morphine Sulfate (Morphine Sulfate 4 Mg/Ml 1 Ml Carp\\Vial) 4 mg IV NOW STA Stop: 12/02/21 09:05 Last Admin: 12/02/21 09:13 Dose: 4 mg Documented by: [id number] Ondansetron HCl (Ondansetron Inj 2 Mg/Ml 2 Ml Vial) 4 mg IV NOW STA Stop: 12/02/21 07:19 Last Admin: 12/02/21 07:33 Dose: 4 mg Documented by: [id number] Medical Decision Making Differential Diagnosis Differential diagnoses entertained included GERD, gastritis, peptic ulcer disease, acute pancreatitis, biliary colic, acute cholecystitis, ascending cholangitis, kidney stone, bowel obstruction, perforation, among others. Medical Records Attestation: I reviewed the patient's medical records. Home Medications Current Medication List: was personally reviewed by me Laboratory Data Attestation: I reviewed the patient's lab results. Result diagrams: 12/02/21 07:12/02/21 07:28 Lab Results 12/02/21 12/02/21 12/02/21 Range/Units 07:28 07:28 07:28 WBC 6.37 (4.8-10.8) K/ul RBC 4.64 (3.93-5.22) M/uL Hgb 14.3 (12.0-16.0) g/dl Hct 41.0 (34.1-44.9) % MCV 88.4 (80.0-100.0) fL MCH 30.8 (25.0-34.0) pg MCHC 34.9 (32.0-36.0) g/dL RDW Std Deviation 38.4 (36.4-46.3) fL RDW Coeff of Juliana 11.9 (11.5-14.5) % Plt Count 185 (130-400) K/uL MPV 10.7 (9.4-12.3) fL Immature Gran % (Auto) 0.2 % Neut % (Auto) 65.0 % Lymph % (Auto) 22.4 % Kinney % (Auto) 11.0 % Eos % (Auto) 1.1 % Baso % (Auto) 0.3 % Neut # (Auto) 4.14 (1.4-6.5) K/uL Lymph # (Auto) 1.43 (1.2-3.4) K/uL Kinney # (Auto) 0.70 (0.24-0.82) K/uL Eos # (Auto) 0.07 (0-0.50) K/uL Baso # (Auto) 0.02 (0-0.2) K/uL Immature Gran # (Auto) 0.01 (0.00-0.02) K/uL Sodium 137 (136-145) mmol/L Potassium 3.9 (3.5-5.1) mmol/L Chloride 107 (98-107) mmol/L Carbon Dioxide 25 (21-32) mmol/L Anion Gap 5 (3-11) BUN 14 (6-23) mg/dl Creatinine 0.73 (0.6-1.2) mg/dl Est Cr Clr Drug Dosing 102.1 ml/min Est GFR ( Amer) 120.2 ml/min Est GFR (Non-Af Amer) 103.7 ml/min BUN/Creatinine Ratio 19.2 (10-20) Glucose 98 (70-99(Fasting)) mg/dl Calcium 8.7 (8.5-10.1) mg/dl Total Bilirubin 0.4 (0.2-1.0) mg/dl AST 21 (13-39) U/L ALT 26 (7-52) U/L Alkaline Phosphatase 45 (34-104) U/L Total Protein 6.5 (6.0-8.3) gm/dl Albumin 3.9 (3.4-5.0) gm/dl Globulin 2.6 (2.5-4.0) gm/dl Albumin/Globulin Ratio 1.5 (0.9-2) Lipase 2286 H (11-82) U/L TSH 0.984 (0.300-4.500) uIu/ml Urine Color Urine Appearance (Clear) Urine pH (4.5-7.5) Ur Specific [place] (1.000-1.030) Urine Protein (Negative) Urine Glucose (UA) (Negative) Urine Ketones (Negative) Urine Blood (Negative) Urine Nitrite (Negative) Urine Bilirubin (Negative) Urine Urobilinogen (Negative) Ur Leukocyte Esterase (Negative) Urine WBC (Auto) (0-5) /hpf Urine RBC (Auto) (0-4) /hpf U Hyaline Cast (Auto) (0-5) /lpf U Epithel Cells (Auto) (0-5) /lpf Urine Bacteria (Auto) (Negative) Urine Mucus (None Prsent) Urine Yeast POC Ur Test (NEG) SARS-CoV-2, RNA, NAAT (NEGATIVE) 12/02/21 12/02/21 12/02/21 Range/Units 07:28 07:36 08:36 WBC (4.8-10.8) K/ul RBC (3.93-5.22) M/uL Hgb (12.0-16.0) g/dl Hct (34.1-44.9) % MCV (80.0-100.0) fL MCH (25.0-34.0) pg MCHC (32.0-36.0) g/dL RDW Std Deviation (36.4-46.3) fL RDW Coeff of Juliana (11.5-14.5) % Plt Count (130-400) K/uL MPV (9.4-12.3) fL Immature Gran % (Auto) % Neut % (Auto) % Lymph % (Auto) % Kinney % (Auto) % Eos % (Auto) % Baso % (Auto) % Neut # (Auto) (1.4-6.5) K/uL Lymph # (Auto) (1.2-3.4) K/uL [place] # (Auto) (0.24-0.82) K/uL Eos # (Auto) (0-0.50) K/uL Baso # (Auto) (0-0.2) K/uL Immature Gran # (Auto) (0.00-0.02) K/uL Sodium (136-145) mmol/L Potassium (3.5-5.1) mmol/L Chloride (98-107) mmol/L Carbon Dioxide (21-32) mmol/L Anion Gap (3-11) BUN (6-23) mg/dl Creatinine (0.6-1.2) mg/dl Est Cr Clr Drug Dosing ml/min Est GFR ( Amer) ml/min Est GFR (Non-Af Amer) ml/min BUN/Creatinine Ratio (10-20) Glucose (70-99(Fasting)) mg/dl Calcium (8.5-10.1) mg/dl Total Bilirubin (0.2-1.0) mg/dl AST (13-39) U/L ALT (7-52) U/L Alkaline Phosphatase (34-104) U/L Total Protein (6.0-8.3) gm/dl Albumin (3.4-5.0) gm/dl Globulin (2.5-4.0) gm/dl Albumin/Globulin Ratio (0.9-2) Lipase (11-82) U/L TSH (0.300-4.500) uIu/ml Urine Color Yellow Urine Appearance Clear (Clear) Urine pH 5.0 (4.5-7.5) Ur Specific [place] 1.022 (1.000-1.030) Urine Protein Negative (Negative) Urine Glucose (UA) Negative (Negative) Urine Ketones Negative (Negative) Urine Blood 2+ H (Negative) Urine Nitrite Negative (Negative) Urine Bilirubin Negative (Negative) Urine Urobilinogen Negative (Negative) Ur Leukocyte Esterase Trace H (Negative) Urine WBC (Auto) 1-5 (0-5) /hpf Urine RBC (Auto) 0-4 (0-4) /hpf U Hyaline Cast (Auto) 1-5 (0-5) /lpf U Epithel Cells (Auto) 5-10 H (0-5) /lpf Urine Bacteria (Auto) 1+ H (Negative) Urine Mucus Present A (None Prsent) Urine Yeast Not Reportable POC Ur Test NEG (NEG) SARS-CoV-2, RNA, NAAT NEGATIVE (NEGATIVE) Imaging Data Attestation: I personally reviewed and interpreted this imaging study as follows: Radiologist's Impression: Chest/Abdomen X-ray 12/02/21 07:18 XR abdomen 2V w PA chest CLINICAL HISTORY: UPPER ABD PAIN, BLOATING. COMPARISON STUDY: Portable chest from 04/16/2020 TECHNIQUE: Single view of the chest. Supine and upright views of the abdomen. FINDINGS: Single frontal view of the chest demonstrates the cardiomediastinal silhouette to be within normal limits. The lungs are clear of acute alveolar opacities. There is no evidence for pleural effusion. There is no evidence for vascular congestion. There is no acute osseous pathology. Abdomen: There is no free air or significant air-fluid levels present. The bowel gas pattern is within normal limits without evidence for dilatation or ob struction. There is no evidence for organomegaly or gross intra-abdominal mass. No abnormal calcifications are seen along the course of the urinary tracts bilaterally. No acute osseous pathology. IMPRESSION: 1. No acute intra-abdominal or chest abnormality. ACT 112: Negative or not required by law. Electronically signed by: Griffin Wilkerson M.D. 12/02/2021 8:00 AM Gallbladder Ultrasound 12/02/21 07:18 US gallbladder CLINICAL HISTORY: UPPER ABD PAIN. COMPARISON: None. TECHNIQUE: Multiple grayscale and color images of the right upper quadrant of the abdomen. FINDINGS: Pancreas: The pancreas is within normal limits with no focal mass or peripancreatic fluid collection identified. Liver: The liver is homogeneous in echogenicity There is no evidence for a focal mass. There is no intrahepatic biliary duct dilatation. There is a small amount of free fluid seen in the subhepatic space. Gallbladder: The gallbladder is distended with thickening of the gallbladder wall measuring 7 mm. Pericholecystic fluid is present. However, there is no evidence for cholelithiasis and there was reportedly a negative sonographic Draper sign. The findings are suspicious for acalculous cholecystitis. Common Bile Duct: (CBD): It is normal in size measuring 5 mm Inferior Vena Cava (IVC): The imaged IVC is patent. Right kidney: There is no evidence for hydronephrosis, calculus or gross renal mass. The kidney is normal in size. It measures 10.7 cm in greatest length. IMPRESSION: 1. Distention of the gallbladder with wall thickening and pericholecystic edema suspicious for acalculous cholecystitis. 2. Small amount of free fluid in Morison's pouch. ACT 112: Negative or not required by law. Electronically signed by: Griffin Wilkerson M.D. 12/02/2021 8:25 AM Cholangiopancreatography MRI 12/02/21 08:47 MR MRCP CLINICAL HISTORY: Pancreatitis, acalculous cholecystitis TECHNIQUE: Multiplanar multisequence MR images were obtained of the abdomen, followed by reconstruction of MRCP imaging. COMPARISON: Gallbladder ultrasound from 12/02/2021 FINDINGS: Liver: There is homogeneous signal intensity seen within the liver. No mass lesions are seen. There is no evidence for intrahepatic or duct dilatation. Gallbladder: As seen on ultrasound, the gallbladder is distended with thickening of the gallbladder wall and pericholecystic edema present. There is again no evidence for cholelithiasis and the findings are again characteristic of a calculus cholecystitis. Spleen: There is homogeneous signal throughout the splenic parenchyma. No mass lesions are seen. Pancreas: The pancreas is homogeneous in signal There is no evidence for a mass lesion. Kidneys: There is homogeneous signal throughout the renal parenchyma bilaterally. Adrenal glands: There is homogeneous signal demonstrated with no gross mass seen. Abdominal cavity: Compared to the ultrasound examination, small amount of free fluid is seen surrounding the liver. The visualized osseous structures, demonstrate no evidence of abnormal signal intensity. MRCP: The common bile duct is normal in course and caliber. There is no evidence for dilatation. There is no intraluminal filling defects or evidence for choledocholithiasis. There is no intrahepatic or duct dilatation. The pancreatic duct is normal in course and caliber. IMPRESSION: 1. MR findings are again characteristic of a calculus cholecystitis. 2. Normal common bile duct and biliary tree. 3. Small amount of free fluid surrounding the liver. 4. No MR evidence for pancreatitis. ACT 112: Negative or not required by law. Electronically signed by: Griffin Wilkerson M.D. 12/02/2021 10:27 AM MDM Narrative See ED Course. Impression & Plan Acute pancreatitis, Acute acalculous cholecystitis Discharge Plan Visit Data Chief Complaint: Abdominal Pain Stated Complaint: ABD PAIN AND BACK PAIN ED Provider: [facility] ED Midlevel Provider: Ang Jenkins Discharge Problem: Acute pancreatitis, Acute acalculous cholecystitis Patient Disposition: Being Evaluated by Hospitalist Discharge Instructions Interventions: ED Discharge Assessment Last Done: 12/02/21 11:07
[2021-12-02 07:42] LABS: Basophils # (auto) 0.02 K/uL (0-0.2); Basophils % (auto) 0.3 %; Eosinophils # (auto) 0.07 K/uL (0-0.50); Eosinophils % (auto) 1.1 %; Hemoglobin 14.3 g/dl (12.0-16.0); Immature Granulocytes # (auto) 0.01 K/uL (0.00-0.02); Immature Granulocytes % (auto) 0.2 %; Lymphocytes # (auto) 1.43 K/uL (1.2-3.4); Lymphocytes % (auto) 22.4 %; Mean Corpuscular Hemoglobin 30.8 pg (25.0-34.0); Mean Corpuscular Hgb Conc 34.9 g/dL (32.0-36.0); Mean Corpuscular Volume 88.4 fL (80.0-100.0); Mean Platelet Volume 10.7 fL (9.4-12.3); Neutrophils # (auto) 4.14 K/uL (1.4-6.5); Platelet Count 185 K/uL (130-400); RDW Coefficient of Variation 11.9 % (11.5-14.5); RDW Standard Deviation 38.4 fL (36.4-46.3); Red Blood Count 4.64 M/uL (3.93-5.22); White Blood Count 6.37 K/ul (4.8-10.8)
[2021-12-02 07:46] LABS: Appearance Urine Clear (Clear); Bilirubin Urine Negative (Negative); Blood Urine 2+ (Negative); Color Urine Yellow; Glucose Urine UA Negative (Negative); Ketones Urine Negative (Negative); Leukocyte Esterase Urine Trace (Negative); Nitrite Urine Negative (Negative); Protein Urine Negative (Negative); RBC Urine Automated 0-4 /hpf (0-4); Specific Gravity Urine 1.022 (1.000-1.030); Urobilinogen Urine Negative (Negative)
[2021-12-02 07:58] LABS: Bacteria Urine Automated 1+ (Negative); Mucus Urine Present (None Prsent)
--- NOTE | 2021-12-02 08:02 | XRay Report ---
XR abdomen 2V w PA chest CLINICAL HISTORY: UPPER ABD PAIN, BLOATING. COMPARISON STUDY: Portable chest from 04/16/2020 TECHNIQUE: Single view of the chest. Supine and upright views of the abdomen. FINDINGS: Single frontal view of the chest demonstrates the cardiomediastinal silhouette to be within normal li mits. The lungs are clear of acute alveolar opacities. There is no evidence for pleural effusion. The re is no evidence for vascular congestion. There is no acute osseous pathology. Abdomen: There is no free air or significant air-fluid levels present. The bowel gas pattern is withi n normal limits without evidence for dilatation or obstruction. There is no evidence for organomegaly or gross intra-abdominal mass. No abnormal calcifications are seen along the course of the urinary t racts bilaterally. No acute osseous pathology. IMPRESSION: 1. No acute intra-abdominal or chest abnormality. ACT 112: Negative or not required by law. Electronically signed by: Griffin Wilkerson M.D. 12/02/2021 8:00 AM
[2021-12-02 08:05] LABS: BUN Creatinine Ratio 19.2 (10-20); Calcium 8.7 mg/dl (8.5-10.1); Creatinine Clr Calc Pharmacy 102.1 ml/min; Est GFR (African American) 120.2 ml/min; Est GFR (Non-African American) 103.7 ml/min; Potassium 3.9 mmol/L (3.5-5.1)
[2021-12-02 08:15] LABS: Albumin Globulin Ratio 1.5 (0.9-2); Albumin Level 3.9 gm/dl (3.4-5.0); Bilirubin,Total 0.4 mg/dl (0.2-1.0); Globulin 2.6 gm/dl (2.5-4.0); Total Protein 6.5 gm/dl (6.0-8.3)
--- NOTE | 2021-12-02 08:26 | Ultrasound Report ---
US gallbladder CLINICAL HISTORY: UPPER ABD PAIN. COMPARISON: None. TECHNIQUE: Multiple grayscale and color images of the right upper quadrant of the abdomen. FINDINGS: Pancreas: The pancreas is within normal limits with no focal mass or peripancreatic fluid collection identified. Liver: The liver is homogeneous in echogenicity There is no evidence for a focal mass. There is no in trahepatic biliary duct dilatation. There is a small amount of free fluid seen in the subhepatic spac e. Gallbladder: The gallbladder is distended with thickening of the gallbladder wall measuring 7 mm. Per icholecystic fluid is present. However, there is no evidence for cholelithiasis and there was reporte dly a negative sonographic Draper sign. The findings are suspicious for acalculous cholecystitis. Common Bile Duct: (CBD): It is normal in size measuring 5 mm Inferior Vena Cava (IVC): The imaged IVC is patent. Right kidney: There is no evidence for hydronephrosis, calculus or gross renal mass. The kidney is no rmal in size. It measures 10.7 cm in greatest length. IMPRESSION: 1. Distention of the gallbladder with wall thickening and pericholecystic edema suspicious for acalcu lous cholecystitis. 2. Small amount of free fluid in Morison's pouch. ACT 112: Negative or not required by law. Electronically signed by: Griffin Wilkerson M.D. 12/02/2021 8:25 AM
[2021-12-02] MEDS ORDERED: MoRPHine SULFATE 4 MG/ML 1 ML CARP\\VIAL IV PRN ×2 (09:04→11:08)
[2021-12-02] MEDS ORDERED: MoRPHine SULFATE 4 MG/ML 1 ML CARP\\VIAL IV STA (09:04)
--- NOTE | 2021-12-02 09:36 | Surgery Consultation ---
Date of Consultation December 02, 2021 Assessment & Plan (1) Acute pancreatitis: Patient also with evidence of gallbladder edema consistent with cholecystitis Likely gallstone pancreatitis which may be from sludge-with normal liver functions it may have passed Her lipase is elevated at 2286 Plan admission, IV fluids, analgesics, IV antibiotics GI evaluation Repeat lipase-when it appears her lipase is decreasing we will proceed with laparoscopic cholecystectomy possibly even tomorrow History of Present Illness History of Present Illness 41-year-old female presenting to the emergency room with acute abdominal pain Pain is epigastric and bandlike and she does have tenderness in the right upper quadrant Her lipase is elevated at 2286, white blood cell count normal, LFTs normal She had an ultrasound performed showing gallbladder distention with a thickened wall and some pericholecystic fluid consistent with cholecystitis History includes hypothyroidism Allergies Allergy/AdvReac Type Severity Reaction Status Date / Time Penicillins Allergy Unknown UNSURE OF Verified 10/04/21 11:21 REACTION Home Medications Medication Instructions Recorded Confirmed Type levothyroxine 125 mcg tablet 125 mcg PO DAILY 02/09/21 04/05/21 History thyroid (pork) 90 mg tablet 90 mg PO DAILY #90 tab 04/05/21 10/04/21 Rx (Many Thyroid) norethindrone 1.5 mg-ethinyl 1 tab PO DAILY #28 tab 05/18/21 10/04/21 Rx estradiol 30 mcg(21)/iron 75 mg(7) tablet (June FE .10/23 (28)) Patient History Medical History Gallbladder anomaly Jessee's thyroiditis History of chicken pox Hypothyroidism Ovarian cyst Surgical History S/P dilatation and curettage S/P hip arthroscopy 2012 S/P wisdom tooth extraction Family History Mother Thyroid disease Denies family history of Ovarian cancer Breast cancer Colorectal cancer Social History Smoking Status: Never smoker 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); Hx Alcohol Use: No Hx Substance Use: No Preferred Language: Setswana Communication Ability: Effective Visual Impairment: No Limitations Post Acute Care Nurse Practitioner Required: No Beliefs That Will Affect Care: None marital status: marital status details: Mariusz Robison (45) [phone] Current Living Situation: Spouse and Family Current Living Situation Comment: lives with spouse, daughter, dog, cats-spouse changing litter current occupational status: employed 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 Assistive Devices: None Review of Systems Review of Systems: All systems reviewed & are unremarkable except as noted in HPI & below Physical Exam Physical Exam: Patient is alert and responsive She does complain of abdominal pain Constitutional: well developed; no acute distress Eyes: + anicteric sclerae Respiratory: normal respiratory effort; no respiratory distress Cardiovascular: Rate/Rhythm: regular rate Gastrointestinal (Abdomen): Inspection/Auscultation: abdomen not distended Patient has tenderness in the right upper quadrant Musculoskeletal: Head/Neck/Chest: head atraumatic Skin: no rashes, warm and dry Neurologic: awake Psychiatric: Orientation: alert Results & Data ([facility]) Vital Signs (Past 12 Hours) Vital Signs Temp Pulse Pulse Resp BP BP Pulse Ox 12/02/21 09:22 81 24 139/96 98 12/02/21 08:19 76 20 130/85 97 12/02/21 06:53 36.5 C 96 H 18 143/75 H 96 Laboratory Results I did review her laboratories Diagnostic Findings I did review her ultrasound and films PG Care Time/CCT Total # of Minutes Spent Total Time Spent with Patient: Total time spent is greater than 50% in coordination of care (as documented) at patient's floor/unit and/or counseling patient: Coding Level of Care Code 23996 Inpt Consult Level 3 Diagnoses Acute pancreatitis K85.90
--- NOTE | 2021-12-02 09:50 | History & Physical Report ---
Date of Service December 02, 2021 Assessment & Plan (1) Acute acalculous cholecystitis: Plan: As seen on ultrasound and CT a/p. - Gen surg consulted - Will take for lap joe once lipase improves. - NPO - Fluids - Abx - Pain and nausea control (2) Acute pancreatitis: Plan: Likely due to gallstone pancreatitis. - GI consulted - Plan as above (3) Hypothyroidism: Plan: TSH was 0.98 this admission. - Continue home levothyroxine (4) DVT prophylaxis: Plan: SCDs - Low DVT risk per admission calculator History of Present Illness Primary Care Provider: ANNY Appiah 41yo F w/ hx of hypothyroidism who presents with acute acalculous cholecystitis. Pain began about 12 hours ago and associated with nausea, but no emesis. Hx of GERD, but nothing recently like this. Did have an episode several years ago with watchful of gallbladder. Received morphine in the ER, and now feeling some better. Allergies Allergy/AdvReac Type Severity Reaction Status Date / Time Penicillins Allergy Unknown UNSURE OF Verified 10/04/21 11:21 REACTION Home Medications Medication Instructions Recorded Confirmed Type levothyroxine 125 mcg tablet 125 mcg PO DAILY 02/09/21 04/05/21 History thyroid (pork) 90 mg tablet 90 mg PO DAILY #90 tab 04/05/21 10/04/21 Rx ([place] Thyroid) norethindrone 1.5 mg-ethinyl 1 tab PO DAILY #28 tab 05/18/21 10/04/21 Rx estradiol 30 mcg(21)/iron 75 mg(7) tablet ( FE 1.530 (28)) Past Med/Surg History Medical History Gallbladder anomaly Jessee's thyroiditis History of chicken pox Hypothyroidism Ovarian cyst Surgical History S/P dilatation and curettage S/P hip arthroscopy 2012 S/P wisdom tooth extraction Family History Mother Thyroid disease Denies family history of Ovarian cancer Breast cancer Colorectal cancer Social History Smoking Status: Never smoker 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); Hx Alcohol Use: No Hx Substance Use: No Preferred Language: Jordanian Communication Ability: Effective Visual Impairment: No Limitations Spray Crew Required: No Beliefs That Will Affect Care: None marital status: marital status details: Mariusz Robison (43) [phone] Current Living Situation: Spouse and Family Current Living Situation Comment: lives with spouse, daughter, dog, cats-spouse changing litter current occupational status: employed 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 Assistive Devices: None Review of Systems Review of Systems: All systems reviewed & are unremarkable except as noted in HPI & below Physical Exam Constitutional: WD/WN, vitals as above Eyes: EOM intact bilaterally; no conjunctival abnormality ENMT: external ear and nose normal, oropharynx normal Neck: trachea midline, no thyromegaly normal visual inspection Respiratory: normal respiratory effort, lungs clear to auscultation no respiratory distress Cardiovascular: RRR, no murmur, no edema Gastrointestinal (Abdomen): Inspection/Auscultation: abdomen normal to inspection; abdomen not distended Percussion/Palpation: + abdomen tender and abdomen soft; no guarding and abdomen not rigid Musculoskeletal: no cyanosis or clubbing, extremities motor strength 5/5 Skin: no rashes, warm and dry Neurologic: moves all extremities and awake Psychiatric: Orientation: alert, oriented to person and cooperative Results & Data Results & Data ([facility]) Vital Signs (Past 12 Hours) Vital Signs Temp Pulse Pulse Resp BP BP Pulse Ox 12/02/21 09:22 81 24 139/96 98 12/02/21 08:19 76 20 130/85 97 12/02/21 06:53 36.5 C 96 H 18 143/75 H 96 Code Status & VTE Plan VTE Prophylaxis Plan VTE Prophylaxis will be ordered: Yes PG Care Time/CCT Total # of Minutes Spent Total Time Spent with Patient: Total time spent is greater than 50% in coordination of care (as documented) at patient's floor/unit and/or counseling patient: Coding Level of Care Code 70764 Initial Inpt Care Lvl 3 Diagnoses Acute acalculous cholecystitis K81.0 Acute pancreatitis K85.90 Hypothyroidism E03.9 DVT prophylaxis Z29.9
--- NOTE | 2021-12-02 10:30 | Magnetic Resonance Report ---
MR MRCP CLINICAL HISTORY: Pancreatitis, acalculous cholecystitis TECHNIQUE: Multiplanar multisequence MR images were obtained of the abdomen, followed by reconstruct ion of MRCP imaging. COMPARISON: Gallbladder ultrasound from 12/02/2021 FINDINGS: Liver: There is homogeneous signal intensity seen within the liver. No mass lesions are seen. There i s no evidence for intrahepatic or duct dilatation. Gallbladder: As seen on ultrasound, the gallbladder is distended with thickening of the gallbladder w all and pericholecystic edema present. There is again no evidence for cholelithiasis and the findings are again characteristic of a calculus cholecystitis. Spleen: There is homogeneous signal throughout the splenic parenchyma. No mass lesions are seen. Pancreas: The pancreas is homogeneous in signal There is no evidence for a mass lesion. Kidneys: There is homogeneous signal throughout the renal parenchyma bilaterally. Adrenal glands: There is homogeneous signal demonstrated with no gross mass seen. Abdominal cavity: Compared to the ultrasound examination, small amount of free fluid is seen surround ing the liver. The visualized osseous structures, demonstrate no evidence of abnormal signal intensity. MRCP: The common bile duct is normal in course and caliber. There is no evidence for dilatation. Th ere is no intraluminal filling defects or evidence for choledocholithiasis. There is no intrahepatic or duct dilatation. The pancreatic duct is normal in course and caliber. IMPRESSION: 1. MR findings are again characteristic of a calculus cholecystitis. 2. Normal common bile duct and biliary tree. 3. Small amount of free fluid surrounding the liver. 4. No MR evidence for pancreatitis. ACT 112: Negative or not required by law. Electronically signed by: Griffin Wilkerson M.D. 12/02/2021 10:27 AM
[2021-12-02] MEDS ORDERED: diphenhydrAMINE 50 MG/ML VIAL ONE (10:43)
[2021-12-02] MEDS ORDERED: diphenhydrAMINE Capsule 25 MG CAP PO ONE (10:47)
[2021-12-02] MEDS ORDERED: diphenhydrAMINE Capsule 25 MG CAP ONE (10:51)
[2021-12-02] MEDS ORDERED: ONDANSETRON INJ 2 MG/ML 2 ML VIAL IV PRN (11:08)
[2021-12-02] MEDS ORDERED: KETOROLAC TROMETHAMINE 15 MG/ML VIAL IV PRN (11:35)
[2021-12-02] MEDS: LACTATED RINGER'S 1,000 ML IV SCH ×2 (11:52→20:24)
--- NOTE | 2021-12-02 12:49 | Gastrointestinal Consultation ---
Date of Consultation December 02, 2021 Assessment & Plan (1) Acute acalculous cholecystitis: (2) Acute pancreatitis: acalculous cholecystitis uncomplicated, no evidence of choledocholithiasis, normal LFTs recs: NPO IVFs, pain control prn abx recommend CCY as per surgery for definitive management No ERCP or EUS is needed at this time Thank you for allowing me to participate in the care of this patient History of Present Illness Attending Physician: Junito Bianchi MD History of Present Illness 41 yo female with hx hypothyroidism here with acute upper abdominal pains that started last night. Pain is in a band in her upper abdomen and also notes nausea without vomiting. took tums and a shower but then this morning pain was even worse and came to ER. Has had episode before but not as severe. She did eat hot dogs and beans last night for dinner.No family hx gallbladder disease. No recent . Denies abdominal surgeries. She is on an oral contraceptive. MRCP shows acalculous cholecystitis, normal CBD and PD. Her lipase was 2200 on admission but no imaging abnormalities of the pancreas are noted. Currently NPO and receiving IVFs and pain medication. CBC and CMP reviewed. VSS. Allergies Allergy/AdvReac Type Severity Reaction Status Date / Time Penicillins Allergy Unknown UNSURE OF Verified 10/04/21 11: REACTION Home Medications Medication Instructions Recorded Confirmed Type levothyroxine 125 mcg tablet 125 mcg PO DAILY 02/09/21 04/05/21 History thyroid (pork) 90 mg tablet 90 mg PO DAILY #90 tab 04/05/21 10/04/21 Rx ([place] Thyroid) norethindrone 1.5 mg-ethinyl 1 tab PO DAILY #28 tab 05/18/21 10/04/21 Rx estradiol 30 mcg(21)/iron 75 mg(7) tablet ( (28)) Patient History Medical History Gallbladder anomaly Jessee's thyroiditis History of chicken pox Hypothyroidism Ovarian cyst Surgical History S/P dilatation and curettage S/P hip arthroscopy 2012 S/P wisdom tooth extraction Family History Mother Thyroid disease Denies family history of Ovarian cancer Breast cancer Colorectal cancer Social History Smoking Status: Never smoker 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); Hx Alcohol Use: No Hx Substance Use: No Preferred Language: Estonian Communication Ability: Effective Visual Impairment: No Limitations Batter Out Required: No Beliefs That Will Affect Care: None marital status: marital status details: Mariusz Robison (43) [phone] Current Living Situation: Spouse and Family Current Living Situation Comment: lives with spouse, daughter, dog, cats-spouse changing litter current occupational status: employed 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 Assistive Devices: None Review of Systems Constitutional: no fever, no chills and no weight loss Eyes: as per Subjective / HPI Ear, Nose, Mouth, Throat: as per Subjective / HPI Respiratory: no dyspnea and no dyspnea on exertion Cardiovascular: no chest pain and no palpitations Gastrointestinal: as per Subjective / HPI Musculoskeletal: no joint pain and no swelling Integumentary: no rash and no lesions Neurologic: no numbness and no paresthesia Psychiatric: no depression and no anxiety Endocrine: no fatigue Hematologic / Lymphatic: no easy bleeding and no easy bruising Physical Exam Constitutional: WD/WN, vitals as above Eyes: EOM intact bilaterally Neck: normal visual inspection Respiratory: normal respiratory effort, lungs clear to auscultation Cardiovascular: RRR, no murmur, no edema Gastrointestinal (Abdomen): Inspection/Auscultation: abdomen normal to inspection; abdomen not distended Percussion/Palpation: + abdomen tender (mild-moderate epigastric and RUQ) and abdomen soft; no hepatosplenomegaly Musculoskeletal: Extremities: no cyanosis Gait: normal gait Skin: no rashes, warm and dry Neurologic: moves all extremities Psychiatric: A+Ox3, euthymic affect Results & Data ([facility]) Vital Signs (Past 12 Hours) Vital Signs Temp Pulse Pulse Resp BP BP Pulse Ox 12/02/21 11:15 36.7 C 68 18 118/75 97 12/02/21 11:07 62 20 123/77 96 12/02/21 09:22 81 24 139/96 98 07/09/22 08:19 76 20 130/85 97 12/02/21 06:53 36.5 C 96 H 18 143/75 H 96 PG Care Time/CCT Total # of Minutes Spent Total Time Spent with Patient: Total time spent is greater than 50% in coordination of care (as documented) at patient's floor/unit and/or counseling patient: Coding Level of Care Code 04853 Inpt Consult Level 4 Diagnoses Acute acalculous cholecystitis K81.0 Acute pancreatitis K85.90
[2021-12-02] MEDS ORDERED: Nursing to Pharmacy Communication SCH (13:00)
--- NOTE | 2021-12-02 13:01 | Anesthesiology Consultation ---
Date of Service December 02, 2021 Assessment & Plan (1) Encounter for pre-operative examination: Chart Review Chart Review: entry writer initiated History Surgery Operation Date: 12/03/21 09:00 Proposed Procedures p Laparoscopic Cholecystectomy - José Antonio Brown MD, FACS Height/Weight Height: 5 ft 5 in Weight: 70.8 kg Allergies Allergy/AdvReac Type Severity Reaction Status Date / Time Penicillins Allergy Unknown UNSURE OF Verified 10/04/21 11:21 REACTION Medications Home Medications Medication Instructions Recorded Confirmed Last Taken levothyroxine 125 mcg tablet 125 mcg PO DAILY 02/09/21 04/05/21 Unknown thyroid (pork) 90 mg tablet 90 mg PO DAILY #90 tab 04/05/21 10/04/21 Unknown ([place] Thyroid) norethindrone 1.5 mg-ethinyl 1 tab PO DAILY #28 tab 05/18/21 10/04/21 Unknown estradiol 30 mcg(21)/iron 75 mg(7) tablet (Junel FE 1.5/30 (28)) Active Medications Generic Name Dose Route Start Last Admin Trade Name Freq PRN Reason Stop Dose Admin Lactated Ringer's 1,000 mls @ 125 mls/hr 12/02/21 11:08 12/02/21 11:52 Lr IV 01/01/22 11:07 125 mls/hr .Q8H CALEB Administration Ketorolac Tromethamine 15 mg 12/02/21 11:35 12/02/21 11:53 Ketorolac Tromethamine 15 Mg/Ml Vial IV 12/07/21 11:34 15 mg Q6H PRN Administration Moderate Pain Ondansetron HCl 4 mg 12/02/21 11:08 12/02/21 11:53 Ondansetron Inj 2 Mg/Ml 2 Ml Vial IV 01/01/22 11:07 4 mg Q4H PRN Administration Nausea Past Medical History Medical History Gallbladder anomaly Jessee's thyroiditis History of chicken pox Hypothyroidism Ovarian cyst Past Family History Family History Mother Thyroid disease Denies family history of Ovarian cancer Breast cancer Colorectal cancer Past Surgical History Surgical History S/P dilatation and curettage S/P hip arthroscopy 2013 S/P wisdom tooth extraction Social History Smoking Status: Never smoker Hx Alcohol Use: No Hx Substance Use: No Physical Exam Vital Signs Last Vital Signs Temp 98.1 F 12/02/21 11:15 Pulse 68 12/02/21 11:15 Resp 18 12/02/21 11:15 BP 118/75 12/02/21 11:15 Pulse Ox 97 12/02/21 11:15 Testing Laboratory Results 12/02/21 07:28 12/02/21 07:28 Urine Color Yellow 12/02/21 07:28 Urine Appearance Clear (Clear) 12/02/21 07:28 Urine pH 5.0 (4.5-7.5) 12/02/21 07:28 Ur Specific [place] 1.022 (1.000-1.030) 12/02/21 07:28 Urine Protein Negative (Negative) 12/02/21 07:28 Urine Glucose (UA) Negative (Negative) 12/02/21 07:28 Urine Ketones Negative (Negative) 12/02/21 07:28 Urine Nitrite Negative (Negative) 12/02/21 07:28 Ur Leukocyte Esterase Trace (Negative) H 12/02/21 07:28 Urine WBC (Auto) 1-5 /hpf (0-5) 12/02/21 07:28 Urine RBC (Auto) 0-4 /hpf (0-4) 12/02/21 07:28 U Hyaline Cast (Auto) 1-5 /lpf (0-5) 12/02/21 07:28 U Epithel Cells (Auto) 5-10 /lpf (0-5) H 12/02/21 07:28 Urine Bacteria (Auto) 1+ (Negative) H 12/02/21 07:28 12/02/21 07:36 POC Ur Test NEG
[2021-12-02] MEDS: HYDROmorphone INJ 0.5 MG/0.5 ML SYR IV PRN ×2 (13:26→20:23)
[2021-12-02] MEDS ORDERED: PROMETHAZINE HCL 12.5 MG in SODIUM CHLORIDE 0.9% 50 ML IV PRN (14:05)
[2021-12-02] MEDS ORDERED: HYDROmorphone INJ 0.5 MG/0.5 ML SYR IV PRN (14:05)
[2021-12-02] MEDS: LEVOTHYROXINE SODIUM 125 MCG TABLET PO SCH (14:20)
[2021-12-02] MEDS: KETOROLAC TROMETHAMINE 15 MG/ML VIAL IV SCH (18:21)
[2021-12-03] MEDS: KETOROLAC TROMETHAMINE 15 MG/ML VIAL IV SCH ×2 (00:28→06:38)
[2021-12-03] MEDS: LACTATED RINGER'S 1,000 ML IV SCH (04:58)
[2021-12-03 05:35] LABS: Hematocrit (blood only) 40.1 % (34.1-44.9); Hemoglobin 13.9 g/dl (12.0-16.0); Mean Corpuscular Hemoglobin 31.2 pg (25.0-34.0); Mean Corpuscular Hgb Conc 34.7 g/dL (32.0-36.0); Mean Corpuscular Volume 90.1 fL (80.0-100.0); Mean Platelet Volume 10.7 fL (9.4-12.3); Platelet Count 170 K/uL (130-400); RDW Coefficient of Variation 11.8 % (11.5-14.5); RDW Standard Deviation 38.8 fL (36.4-46.3); Red Blood Count 4.45 M/uL (3.93-5.22); White Blood Count 8.15 K/ul (4.8-10.8)
--- NOTE | 2021-12-03 05:36 | Surgery Progress Note ---
Date of Service December 03, 2021 Assessment & Plan (1) Acute pancreatitis: Plan: Patient has been admitted by the hospitalist service. We will recommend proceeding as follows: Continue analgesics Continue antiemetics Continue IV fluid for hydration/resuscitation Continue antibiotics in the form of Ancef Continue n.p.o. status A.m. labs have been ordered and are pending Clinically patient has improved. If results of a.m. labs are acceptable and sure that pancreatitis is resolving we will proceed with laparoscopic cholecystectomy, possibly this morning. Additional recommendations will be based on lab results, operative findings at time of surgery when performed, and postoperative recovery (2) Acute acalculous cholecystitis: Admission and Anticipated Discharge Date Admission Date: December 02, 2021 Supervising Physician Co-Signing Physician Notes Dr. Little lipase is come down to 1300. Plan is to proceed with laparoscopic cholecystectomy today Hopefully early this a.m. Subjective Patient notes that the abdominal pain that was present at time of admission is markedly improved. She denies nausea or vomiting. No fevers, shakes, or chills. She is passing flatus but not moving bowels. She says she is not having difficulty urinating. Physical Exam Gastrointestinal (Abdomen): Abdomen is soft, nonrigid, and nondistended. Bowel sounds are hypoactive. Patient has slight pain with palpation in the right upper quadrant and epigastric areas. No rebound tenderness or guarding. Results & Data ([facility]) Vital Signs (Past 12 Hours) Vital Signs Temp Pulse Resp BP Pulse Ox 12/02/21 21:25 36.8 C 64 16 147/89 H 97 PG Care Time/CCT Total # of Minutes Spent Total Time Spent with Patient: Total time spent is greater than 50% in coordination of care (as documented) at patient's floor/unit and/or counseling patient: Coding Level of Care Code 65705 Subseq Hosp Care Lvl 1 Diagnoses Acute pancreatitis K85.90 Acute acalculous cholecystitis K81.0
[2021-12-03 05:57] LABS: Albumin Globulin Ratio 1.4 (0.9-2); Albumin Level 3.4 gm/dl (3.4-5.0); BUN Creatinine Ratio 10.7 (10-20); Bilirubin,Total 0.9 mg/dl (0.2-1.0); Calcium 8.3 mg/dl (8.5-10.1); Creatinine Clr Calc Pharmacy 99.4 ml/min; Est GFR (African American) 116.4 ml/min; Est GFR (Non-African American) 100.4 ml/min; Globulin 2.4 gm/dl (2.5-4.0); Magnesium 1.9 mg/dl (1.7-2.4); Potassium 3.9 mmol/L (3.5-5.1); Total Protein 5.8 gm/dl (6.0-8.3)
[2021-12-03] MEDS ORDERED: LEVOTHYROXINE SODIUM 125 MCG TABLET PO SCH (06:30)
[2021-12-03] MEDS: LEVOTHYROXINE SODIUM 125 MCG TABLET PO SCH (06:38)
[2021-12-03] MEDS ORDERED: fentaNYL citrate 100 MCG/2 ML VIAL IV PRN (07:17)
[2021-12-03] MEDS ORDERED: ePHEDrine sulfate 50 MG/ML AMP IV PRN (07:17)
[2021-12-03] MEDS ORDERED: ONDANSETRON INJ 2 MG/ML 2 ML VIAL IV PRN (07:17)
[2021-12-03] MEDS ORDERED: ATROPINE SULFATE 0.1 MG/ML 10ML SYR IV PRN (07:17)
[2021-12-03] MEDS ORDERED: MIDAZOLAM HCL 1 MG/ML 2ML VIAL ONE (07:21)
[2021-12-03] MEDS ORDERED: fentaNYL citrate 100 MCG/2 ML VIAL ONE (07:22)
[2021-12-03] MEDS ORDERED: ACETAMINOPHEN 1000 MG/100 ML IV IV ONE (07:25)
[2021-12-03] MEDS ORDERED: LIDOCAINE 2% MPF LOCAL 5 ML VIAL INFIL ONE (07:26)
[2021-12-03] MEDS ORDERED: FAMOTIDINE/PF 20 MG/2 ML VIAL IV ONE (07:26)
[2021-12-03] MEDS ORDERED: SCOPOLAMINE 1 MG TDSY TD ONE (07:26)
[2021-12-03] MEDS ORDERED: BUPIVACAINE 0.5 % 5 MG/1 ML MPF 30ML VIAL ONE (07:28)
[2021-12-03] MEDS ORDERED: METOCLOPRAMIDE HCL INJ 5 MG/ML 2 ML VIAL ONE (07:54)
[2021-12-03] MEDS ORDERED: PROPOFOL IV EMULSION 10 MG/ML 20 ML VIAL IV ONE (07:55)
[2021-12-03] MEDS ORDERED: ONDANSETRON INJ 2 MG/ML 2 ML VIAL ONE (07:55)
[2021-12-03] MEDS ORDERED: ROCURONIUM BROMIDE 10 MG/ML 5 ML VIAL IV ONE (07:55)
[2021-12-03] MEDS ORDERED: DEXAMETHASONE SOD INJ 4 MG/ML VIAL ONE (07:55)
[2021-12-03] MEDS ORDERED: GLYCOPYRROLATE 0.2 MG/ML VIAL ONE (08:06)
[2021-12-03] MEDS ORDERED: NEOSTIGMINE METHYLSULFATE 1 MG/ML 10ML VIAL ONE (08:06)
--- NOTE | 2021-12-03 08:29 | Post Operative Brief Note ---
PG Immediate Post Op with CF Date of Surgery December 03, 2021 Pre & Post Diagnosis Operation Date: 12/03/21 09:00 Pre-Op Diagnosis: Acute acalculous cholecystitis Post-Op Diagnosis: Acute acalculous cholecystitis-acute and chronic cholecystitis with adhesions I identified the patient and participated in the time-out.: Yes Procedure Operation Date: 12/03/21 09:00 Actual Procedures p Laparoscopic Cholecystectomy(Not Applicable) - José Antonio Brown MD, FACS Lysis of adhesions Surgeon José Antonio Brown MD, FACS Child Development Assistant Nurses Estimated Blood Loss 5 Findings Consistent with Post-Op Diagnosis Patient had chronic adhesions to the gallbladder and evidence of acute and chronic cholecystitis Specimens Specimen Description: A. Gallbladder
--- NOTE | 2021-12-03 09:43 | Anesthesiology Progress Note ---
Date of Service December 03, 2021 Anesthesia Post Procedure Vital Signs Vital Signs: Temp Pulse Pulse Pulse Pulse Resp BP 12/03/21 09:20 97.2 F L 67 16 12/03/21 09:10 51 L 17 12/03/21 09:00 77 18 12/03/21 08:50 80 16 12/03/21 08:44 96.8 F L 83 16 12/03/21 07:17 98.6 F 75 16 12/02/21 21:25 98.2 F 64 16 12/02/21 11:15 98.1 F 68 18 12/02/21 11:07 62 20 123/77 BP Pulse Ox 12/03/21 09:20 124/88 94 12/03/21 09:10 127/89 95 12/03/21 09:00 113/83 95 12/03/21 08:50 126/92 99 12/03/21 08:44 131/86 98 12/03/21 07:17 125/88 97 12/02/21 21:25 147/89 H 97 12/02/21 11:15 118/75 97 12/02/21 11:07 96 Pain Intensity Abdomen: Pain Intensity: 4 Transfer of Care Handoff Completed per policy Notes Mental Status: alert / awake / arousable and participated in evaluation Patient Amnestic to Procedure: Yes Nausea / Vomiting: adequately controlled Pain: adequately controlled Airway Patency, RR, SpO2: stable & adequate BP & HR: stable & adequate Hydration State: stable & adequate Anesthetic Complications: no major complications apparent and Pt Satisfied with anesthetic care
--- NOTE | 2021-12-03 13:21 | Hospitalist Progress Note ---
Date of Service December 03, 2021 Assessment & Plan (1) Acute acalculous cholecystitis: Plan: As seen on ultrasound and CT a/p. - Gen surg consulted - Lap joe on 12/03 without any complications. - Fluids - Abx until discharge - Pain and nausea control - Home tomorrow if feeling well. (2) Acute pancreatitis: Plan: Likely due to gallstone pancreatitis. - GI consulted - Plan as above (3) Hypothyroidism: Plan: TSH was 0.98 this admission. - Continue home levothyroxine (4) DVT prophylaxis: Plan: SCDs - Low DVT risk per admission calculator Admission and Anticipated Discharge Date Admission Date: December 02, 2021 Subjective Seen after surgery. Doing well. No major issues. Has some cough from the intubation. Reports no fevers/chills, chest pain, shortness of breath, nausea, or vomiting. Physical Exam Constitutional: WD/WN, vitals as above Eyes: EOM intact bilaterally; no conjunctival abnormality ENMT: external ear and nose normal, oropharynx normal Neck: trachea midline, no thyromegaly normal visual inspection Respiratory: normal respiratory effort, lungs clear to auscultation no respiratory distress Cardiovascular: RRR, no murmur, no edema Gastrointestinal (Abdomen): Inspection/Auscultation: + abdominal surgical incision (3 laparoscopic incisions; no bleeding); abdomen not distended Percussion/Palpation: + abdomen tender and abdomen soft; no guarding and abdomen not rigid Musculoskeletal: no cyanosis or clubbing, extremities motor strength 5/5 Skin: no rashes, warm and dry Neurologic: moves all extremities and awake Psychiatric: Orientation: alert, oriented to person and cooperative Results & Data Results & Data ([facility]) Vital Signs (Past 12 Hours) Vital Signs Temp Pulse Pulse Resp BP Pulse Ox 12/03/21 12:33 36.8 C 76 16 126/82 97 12/03/21 11:32 36.6 C 58 L 16 110/73 94 12/03/21 10:25 36.5 C 57 L 16 126/80 97 12/03/21 10:00 36.4 C L 76 16 123/81 96 12/03/21 09:30 37.1 C 69 16 119/84 96 12/03/21 09:20 36.2 C L 67 16 124/88 94 12/03/21 09:10 51 L 17 127/89 95 12/03/21 09:00 77 18 113/83 95 12/03/21 08:50 80 16 126/92 99 12/03/21 08:44 36 C L 83 16 131/86 98 12/03/21 07:17 37 C 75 16 125/88 97 PG Care Time/CCT Total # of Minutes Spent Total Time Spent with Patient: Total time spent is greater than 50% in coordination of care (as documented) at patient's floor/unit and/or counseling patient: Coding Level of Care Code 36258 Subseq Hosp Care Lvl 2 Diagnoses Acute acalculous cholecystitis K81.0 Acute pancreatitis K85.90 Hypothyroidism E03.9 DVT prophylaxis Z29.9
[2021-12-03] MEDS ORDERED: HYDROmorphone INJ 0.5 MG/0.5 ML SYR IV PRN (16:43)
--- NOTE | 2021-12-03 18:45 | Operative Report (OR) ---
DATE OF OPERATION: 12/03/2021. NAME OF OPERATION: Laparoscopic cholecystectomy with lysis of adhesions. PREOPERATIVE DIAGNOSIS: Acute cholecystitis. POSTOPERATIVE DIAGNOSIS: Acute with chronic cholecystitis and adhesions. STAFF SURGEON: José Antonio Brown MD ASSISTANTS: Nurses. ANESTHESIA: General. DESCRIPTION OF PROCEDURE: The patient was brought in the operating room and placed on the operating table in supine position. Her abdomen was prepped and draped in the usual fashion. 0.5% plain Hannah ine was used to anesthetize all incisions. Incision was made above the umbilicus, carrying dissectio n down identifying the fascia, placing a Veress needle producing pneumoperitoneum. An 11-mm port was placed at this level and under visualization, three 5-mm ports were placed, one cephalad and two lat erally. Gallbladder was very distended. It was retracted, aspirated of bile and then dissection car ried out to the chas hepatis, identifying the cystic duct, which was small and short and then the cy stic artery. These were clipped and transected and the gallbladder dissected away from the liver bed . There was severe edema and also prior to dissection of the chas hepatis, I had to take down adhes ions to the gallbladder, which were chronic in nature. The gallbladder was dissected away from the l iver bed. There was severe edema in the posterior wall with some chronic scarring. It was placed in an Endobag. After appropriate irrigation and hemostasis, the Endobag was removed through the umbili ryan site. Umbilical fascia closed using 0 Vicryl suture. The skin was reapproximated using subcutic ular 4-0 Monocryl and Dermabond. The patient was transferred to recovery room in stable condition. Job ID: [id number]
[2021-12-03] MEDS: HYDROCODONE/ACETAMOPHEN 5/325MG TAB PO PRN (19:55)
[2021-12-04] MEDS: LEVOTHYROXINE SODIUM 125 MCG TABLET PO SCH (06:18)
[2021-12-04 06:22] LABS: Hematocrit (blood only) 39.6 % (34.1-44.9); Hemoglobin 13.5 g/dl (12.0-16.0); Mean Corpuscular Hemoglobin 30.2 pg (25.0-34.0); Mean Corpuscular Hgb Conc 34.1 g/dL (32.0-36.0); Mean Corpuscular Volume 88.6 fL (80.0-100.0); Platelet Count 166 K/uL (130-400); RDW Standard Deviation 38.8 fL (36.4-46.3); Red Blood Count 4.47 M/uL (3.93-5.22); White Blood Count 10.82 K/ul (4.8-10.8)
[2021-12-04] MEDS: HYDROCODONE/ACETAMOPHEN 5/325MG TAB PO PRN (06:24)
[2021-12-04 06:40] LABS: Albumin Globulin Ratio 1.5 (0.9-2); Albumin Level 3.6 gm/dl (3.4-5.0); BUN Creatinine Ratio 11.4 (10-20); Bilirubin Direct 0.1 mg/dl (0-0.2); Bilirubin,Total 0.6 mg/dl (0.2-1.0); Calcium 8.3 mg/dl (8.5-10.1); Creatinine Clr Calc Pharmacy 84.7 ml/min; Est GFR (African American) 95.9 ml/min; Est GFR (Non-African American) 82.8 ml/min; Globulin 2.4 gm/dl (2.5-4.0); Potassium 3.6 mmol/L (3.5-5.1)
[2021-12-04] MEDS ORDERED: HEPARIN SOD 5,000 UNIT/0.5 ML VIAL SQ SCH (09:00)
--- NOTE | 2021-12-04 13:03 | Discharge Summary ---
Date of Service December 04, 2021 Admission HPI Per Admitting Provider 41yo F w/ hx of hypothyroidism who presents with acute acalculous cholecystitis. Pain began about 12 hours ago and associated with nausea, but no emesis. Hx of GERD, but nothing recently like this. Did have an episode several years ago with watchful of gallbladder. Received morphine in the ER, and now feeling some better. Principal Diagnosis Acalculous cholecystitis Discharge Exam Constitutional WD/WN, vitals as above Eyes EOM intact bilaterally; no conjunctival abnormality ENMT external ear and nose normal, oropharynx normal Neck trachea midline, no thyromegaly normal visual inspection Respiratory normal respiratory effort, lungs clear to auscultation no respiratory distress Cardiovascular RRR, no murmur, no edema Gastrointestinal (Abdomen) Inspection/Auscultation: + abdominal surgical incision (3 laparoscopic incisions; no bleeding); abdomen not distended Percussion/Palpation: + abdomen tender and abdomen soft; no guarding and abdomen not rigid Musculoskeletal no cyanosis or clubbing, extremities motor strength 5/5 Skin no rashes, warm and dry Neurologic moves all extremities and awake Psychiatric Orientation: alert, oriented to person and cooperative Discharge Data Allergies Allergy/AdvReac Type Severity Reaction Status Date / Time Penicillins Allergy Unknown UNSURE OF Verified 10/04/21 11:21 REACTION morphine Allergy Rash Verified 12/03/21 07:25 Consultations 12/02/21 09:04 ED Decision to Admit Stat 12/02/21 11:08 Consult Gastroenterology Routine Procedures Performed Operation Date: 12/03/21 09:00 Actual Procedures p Laparoscopic Cholecystectomy(Not Applicable) - José Antonio Brown MD, FACS Ordered Studies 12/02/21 07:18 US gallbladder Stat 12/02/21 08:47 MR MRCP Stat Hospital Course (1) Acute acalculous cholecystitis: As seen on ultrasound and CT a/p. - Gen surg consulted - Lap joe on 12/03 without any complications. - Abx until discharge - Discharged home with weight restrictions. F/u with Dr. Brown in 2 weeks. (2) Acute pancreatitis: Likely due to gallstone pancreatitis. - GI consulted - Resolved by discharge. (3) Hypothyroidism: TSH was 0.98 this admission. - Continue home levothyroxine (4) DVT prophylaxis: SCDs - Low DVT risk per admission calculator Total Time Total Time Spent Total Time Spent (In Minutes): 35 Discharge Plan Discharge Items Patient Disposition: Home - Self-Care Reason For Visit: ABD PAIN AND BACK PAIN Discharge Diagnosis: Acute and chronic cholecystitis Gallstone pancreatitis Activity: As commented below Activity Comment: Light activity for 3 weeks Lifting: No more than 25 pounds Bathing Comment: May shower Sexual Activity: When tolerated Exercise Comment: Wait 3 weeks Driving/Machine Use: Resume 3 days after discharge Non-emergency contact: Primary Care Provider and Surgeon Call non-emergency contact if: your pain is not controlled, your temperature is above 101 and your wound has increased drainage Follow-up/Referrals: José Antonio Brown MD, FACS [Physician] - 12/20/21 8:45 am Destiny Deng CRNP [Primary Care Provider] - 12/07/21 2:45 pm Diet: Regular Addtl Attending Provider Instructions: SPECIAL CARE INSTRUCTIONS: * Cover incisions and change daily for comfort/drainage. *May leave uncovered with Dermabond * May use ibuprofen for pain as tolerated. * Expect some swelling and bruising. Call your doctor if: * Temperature above 101 degrees * Pain not relieved by pain medicine ordered * There is increased drainage or redness from any incision * You have any unanswered questions or concerns [phone]. FOLLOW UP VISIT: If not already scheduled, please call the office for a follow-up visit. For 2 to 3 weeksno sutures to remove OFFICE PHONE NUMBER: Dr. Brown Office Pending Studies at Discharge: No Stand-Alone Forms: My [facility] Classroom, Work/School Release, Smoking Cessation Medications and DC Order Prescriptions: New hydrocodone-acetaminophen 5-325 mg tablet 1 tab PO Q4H PRN (Reason: pain) Qty: 30 RF: 0 Continued norethindrone-e.estradiol-iron [ 1.5 (28)] 1.5 mg-30 mcg (21)/75 mg (7) tablet 1 tab PO DAILY Qty: 28 RF: 12 thyroid (pork) [Marathon Thyroid] 90 mg tablet 90 mg PO DAILY Qty: 90 RF: 3 levothyroxine 125 mcg tablet 125 mcg PO DAILY RF: 0 Hold Instructions: Home Medication placed on hold at Doctor's office Discharge Orders: Discharge Order (Routine); Ordered 12/04/21 Ordered By: José Antonio Brown Admission Data Admit Date/Time: 12/02/21 09:44 Attending Provider: Junito Bianchi Admit Provider: Junito Bianchi Primary Care Provider: Destiny Deng Other Providers: José Antonio Brown ; Junito Biacnhi ; Farooq Duggan Other Interventions: Discharge Summary Assessment (RN) Last Done: 12/04/21 09:12 Coding Level of Care Code D/C DAY MANAGEMENT >30 MINS Diagnoses Acute acalculous cholecystitis K81.0 Acute pancreatitis K85.90 Hypothyroidism E03.9 DVT prophylaxis Z29.9
== END 2021-12-04 11:16 | disposition home or self-care (01) | DRG 417 ==
LOC: ED 06:52 → 3N 09:44